=== PATIENT | male | born 1950 | race Caucasian/White ===

== ENCOUNTER 2020-07-07 06:58 | Outpatient (REF) | payer MEDICARE, SELFPAY ==
[2020-07-07 08:30] LABS: Estimated Average Glucose 137 mg/dL; Hemoglobin A1c % 6.4 %
[2020-07-07 08:50] LABS: Alanine Aminotransferase 28 U/L (0-40); Albumin Level 4.4 g/dL (3.5-5.0); Alkaline Phosphatase 82 U/L (39-117); Aspartate Amino Transferase 23 U/L (5-37); Bilirubin Direct 0.3 mg/dL (0.0-0.5); Bilirubin Total 0.6 mg/dL (0.0-1.0); Cholesterol 130 mg/dL; Glucose Fasting 114 mg/dL (60-99); HDL Cholesterol 62 mg/dL; LDL Cholesterol Calculated 55 mg/dl; Total Protein 6.7 g/dL (6.5-8.0); Triglycerides 69 mg/dL
[2020-07-07 10:57] LABS: Reflex LDLD? No
== END 2020-07-07 06:59 | disposition home or self-care (01) ==
LOC: HO.LAB 06:58
PROVIDERS: PCP Internal Medicine; Visit Provider Internal Medicine
DX: E11.9 Type 2 diabetes mellitus without complications (principal); E78.00 Pure hypercholesterolemia, unspecified
CPT/HCPCS: 36415; 80061; 80076; 82947; 83036

== ENCOUNTER 2020-12-30 10:27 | Outpatient (REF) | payer MEDICARE, SELFPAY ==
[2020-12-30 10:47] LABS: MANUAL DIFF FLAG NO
[2020-12-30 11:10] LABS: Basophils Absolute Auto 0.1 X10*3/uL (0.0-0.2); Basophils Percent Auto 0.9 % (0-2); Eosinophils Absolute Auto 0.2 X10*3/uL (0.0-0.4); Hematocrit 43.5 % (42-52); Hemoglobin 14.6 g/dl (14.0-18.0); Imm Gran Abs Auto 0.05 X10*3/uL (0.00-0.03); Imm Gran Pct Auto 0.9 % (0.0-0.4); Lymphocytes Percent Auto 35.1 % (20-40); Mean Corpuscular HGB Conc 33.6 g/dl (31.0-36.0); Mean Corpuscular Volume 92.4 fL (80-98); Mean Platelet Volume 9.7 fL (9.4-12.4); Monocytes Absolute Auto 0.5 X10*3/uL (0.1-1.2); Monocytes Percent Auto 8.7 % (2-11); Neutrophils Percent Auto 51.4 % (45-73); Platelet Count 189 X10*3/uL (160-400); Red Blood Count 4.71 X10*6/uL (4.60-5.80); Red Cell Distribution Width 14.6 % (11.0-16.0); White Blood Count 5.8 X10*3/uL (4.8-10.8)
[2020-12-30 11:35] LABS: Estimated Average Glucose 160 mg/dL; Hemoglobin A1c % 7.2 %
[2020-12-30 11:39] LABS: Glucose Urine UA NEG (NEG); Leukocyte Esterase Urine NEG (NEG); Nitrite Urine NEG (NEG); PH 5.5 (5.0-8.0); Specific Gravity - Urine >= 1.030 (1.005-1.025); Urine Blood NEG (NEG); Urine Ketones NEG (NEG); Urine Protein NEG (NEG-TRACE)
[2020-12-30 11:42] LABS: Appearance Urine CLEAR; Color Urine YELLOW
[2020-12-30 12:11] LABS: Microalbum/Creatinine Ratio Ur 3.6 ug/mg cr
[2020-12-30 12:18] LABS: PSA,Total (Free>4and<10) 0.12 ng/mL (0.00-4.00)
[2020-12-30 12:34] LABS: Alanine Aminotransferase 31 U/L (0-40); Albumin Level 4.3 g/dL (3.5-5.0); Alkaline Phosphatase 79 U/L (39-117); Anion Gap 14 (12-20); Aspartate Amino Transferase 22 U/L (5-37); Bilirubin Total 0.7 mg/dL (0.0-1.0); Blood Urea Nitrogen 24 mg/dL (9-16); Calcium 8.8 mg/dL (8.4-10.2); Carbon Dioxide 27 mmol/L (22-29); Chloride 105 mmol/L (96-108); Cholesterol 160 mg/dL; Estimated Glomerular Filt Rate > 60; Glucose Fasting 137 mg/dL (60-99); HDL Cholesterol 66 mg/dL; LDL Cholesterol Calculated 68 mg/dl; Potassium 3.8 mmol/L (3.3-5.1); Sodium 142 mmol/L (135-145); Total Protein 6.7 g/dL (6.5-8.0); Triglycerides 131 mg/dL
[2020-12-30 13:31] LABS: Reflex LDLD? No
== END 2020-12-30 10:28 | disposition home or self-care (01) ==
LOC: HO.LNP 10:27
PROVIDERS: Visit Provider Internal Medicine
DX: E11.9 Type 2 diabetes mellitus without complications (principal); E78.00 Pure hypercholesterolemia, unspecified; R31.9 Hematuria, unspecified; Z12.5 Encounter for screening for malignant neoplasm of prostate
CPT/HCPCS: 80053; 80061; 81003; 82043; 83036; 84153; 85025

== ENCOUNTER → 2021-07-06 09:18 | Outpatient (BNVA) | payer OTHER, SELFPAY | PROVIDERS: PCP Internal Medicine; Visit Provider Physician Assistant Medical | DX: S89.81XA Other specified injuries of right lower leg, initial encounter (principal); S59.801A Other specified injuries of right elbow, initial encounter; W18.30XA Fall on same level, unspecified, initial encounter | CPT/HCPCS: 73564; 99203 ==

== ENCOUNTER → 2021-07-08 13:45 | Outpatient (BNVA) | payer OTHER, SELFPAY | PROVIDERS: PCP Internal Medicine; Visit Provider Physician Assistant Medical | DX: S89.91XA Unspecified injury of right lower leg, initial encounter (principal); S59.901A Unspecified injury of right elbow, initial encounter; W18.39XA Other fall on same level, initial encounter | CPT/HCPCS: 99213 ==

== ENCOUNTER 2021-07-10 10:38 | Outpatient (REF) | payer MEDICARE, SELFPAY ==
[2021-07-10 11:03] LABS: Alanine Aminotransferase 27 U/L (0-40); Albumin Level 4.3 g/dL (3.5-5.0); Alkaline Phosphatase 91 U/L (39-117); Aspartate Amino Transferase 21 U/L (5-37); Bilirubin Direct 0.3 mg/dL (0.0-0.5); Bilirubin Total 0.7 mg/dL (0.0-1.0); Cholesterol 163 mg/dL; Glucose Fasting 147 mg/dL (60-99); HDL Cholesterol 58 mg/dL; LDL Cholesterol Calculated 77 mg/dl; Total Protein 6.9 g/dL (6.5-8.0); Triglycerides 143 mg/dL
[2021-07-10 11:04] LABS: Estimated Average Glucose 174 mg/dL; Hemoglobin A1c % 7.7 %
[2021-07-10 11:14] LABS: Reflex LDLD? No
== END 2021-07-10 10:39 | disposition home or self-care (01) ==
LOC: HO.LNP 10:38
PROVIDERS: Visit Provider Internal Medicine
DX: E11.9 Type 2 diabetes mellitus without complications (principal); E78.00 Pure hypercholesterolemia, unspecified
CPT/HCPCS: 80061; 80076; 82947; 83036

== ENCOUNTER 2021-07-31 12:04 | Outpatient (REF) | payer MEDICARE, SELFPAY ==
--- NOTE | ~2021-07-31 | US_ITS ---
EXAMINATION: US VENOUS ULTRASOUND WITH DOPPLER LOWER EXTREMITY, RIGHT CLINICAL INFORMATION: Right leg swelling COMPARISON: None TECHNIQUE: Ultrasound of the deep veins is performed from the hip to the calf with compression sonography and color and pulse Doppler assessment. Spectral analysis with color-flow imaging is performed. FINDINGS: There is normal venous compression and respiratory variation and augmented flow. The visualized common femoral vein, superficial femoral vein, profunda femoral vein, popliteal vein, and the trifurcation region shows no evidence of deep venous thrombosis. There is no significant popliteal fossa cyst. No popliteal artery aneurysm. US/US venous duplex LE RT IMPRESSION: No acute DVT demonstrated in the right lower extremity.
== END 2021-07-31 12:05 | disposition home or self-care (01) ==
LOC: HO.US 12:04
PROVIDERS: PCP Internal Medicine; Visit Provider Internal Medicine
DX: R60.0 Localized edema (principal)
CPT/HCPCS: 93971

== ENCOUNTER 2022-01-07 11:02 | Outpatient (REF) | payer MEDICARE, SELFPAY ==
[2022-01-07 11:06] LABS: MANUAL DIFF FLAG NO
[2022-01-07 12:03] LABS: Basophils Absolute Auto 0.1 X10*3/uL (0.0-0.2); Basophils Percent Auto 1.1 % (0-2); Eosinophils Absolute Auto 0.2 X10*3/uL (0.0-0.4); Eosinophils Percent Auto 4.2 % (0-4); Hemoglobin 14.8 g/dl (14.0-18.0); Imm Gran Abs Auto 0.04 X10*3/uL (0.00-0.03); Imm Gran Pct Auto 0.7 % (0.0-0.4); Lymphocytes Absolute Auto 2.2 X10*3/uL (1.2-4.9); Lymphocytes Percent Auto 38.7 % (20-40); Mean Corpuscular HGB Conc 32.9 g/dl (31.0-36.0); Mean Corpuscular Hemoglobin 30.7 pg (27.0-33.0); Mean Corpuscular Volume 93.4 fL (80.0-98.0); Mean Platelet Volume 9.4 fL (9.4-12.4); Monocytes Absolute Auto 0.5 X10*3/uL (0.1-1.2); Monocytes Percent Auto 9.2 % (2-11); Neutrophils Absolute Auto 2.6 x10*3/uL (2.0-8.3); Neutrophils Percent Auto 46.1 % (45-73); Platelet Count 247 X10*3/uL (160-400); Red Blood Count 4.82 X10*6/uL (4.60-5.80); Red Cell Distribution Width 14.7 % (11.0-16.0); White Blood Count 5.7 X10*3/uL (4.8-10.8)
[2022-01-07 12:05] LABS: Appearance Urine CLEAR; Color Urine YELLOW; Glucose Urine UA NEG (NEG); Leukocyte Esterase Urine NEG (NEG); Nitrite Urine NEG (NEG); PH 5.5 (5.0-8.0); Specific Gravity - Urine >= 1.030 (1.005-1.025); Urine Blood NEG (NEG); Urine Ketones NEG (NEG); Urine Protein NEG (NEG-TRACE)
[2022-01-07 12:12] LABS: Estimated Average Glucose 157 mg/dL; Hemoglobin A1c % 7.1 %
[2022-01-07 12:13] LABS: Alanine Aminotransferase 29 U/L (0-40); Albumin Level 4.5 g/dL (3.5-5.0); Alkaline Phosphatase 85 U/L (39-117); Anion Gap 10 (12-20); Aspartate Amino Transferase 22 U/L (5-37); Bilirubin Total 0.8 mg/dL (0.0-1.0); Blood Urea Nitrogen 23 mg/dL (9-16); Calcium 9.6 mg/dL (8.4-10.2); Carbon Dioxide 29 mmol/L (22-29); Chloride 106 mmol/L (96-108); Cholesterol 165 mg/dL; Estimated Glomerular Filt Rate > 60; Glucose Fasting 171 mg/dL (60-99); HDL Cholesterol 61 mg/dL; LDL Cholesterol Calculated 81 mg/dl; Potassium 4.1 mmol/L (3.3-5.1); Sodium 141 mmol/L (135-145); Total Protein 6.9 g/dL (6.5-8.0); Triglycerides 115 mg/dL
[2022-01-07 12:32] LABS: Creatinine Urine 208.87 mg/dL; Microalbum/Creatinine Ratio Ur 4.3 ug/mg cr
[2022-01-07 12:33] LABS: PSA,Total (Free>4and<10) 0.12 ng/mL (0.00-4.00)
== END 2022-01-07 11:03 | disposition home or self-care (01) ==
LOC: HO.LNP 11:02
PROVIDERS: Visit Provider Internal Medicine
DX: Z12.5 Encounter for screening for malignant neoplasm of prostate (principal); E11.9 Type 2 diabetes mellitus without complications; E78.00 Pure hypercholesterolemia, unspecified
CPT/HCPCS: 80053; 80061; 81003; 82043; 83036; 84153; 85025

== ENCOUNTER 2022-07-16 10:34 | Outpatient (REF) | payer MEDICARE, SELFPAY ==
[2022-07-16 11:23] LABS: Blood Urea Nitrogen 19 mg/dL (9-16); Estimated Glomerular Filt Rate > 60
== END 2022-07-16 10:35 | disposition home or self-care (01) ==
LOC: HO.LNP 10:34
PROVIDERS: Visit Provider Internal Medicine
DX: R79.9 Abnormal finding of blood chemistry, unspecified (principal)
CPT/HCPCS: 82565; 84520

== ENCOUNTER 2023-01-14 10:54 | Outpatient (REF) | payer MEDICARE, SELFPAY ==
[2023-01-14 10:58] LABS: MANUAL DIFF FLAG NO
[2023-01-14 11:56] LABS: Appearance Urine Clear; Color Urine Dark Yellow; Glucose Urine UA Negative (Negative); Leukocyte Esterase Urine Negative (Negative); Nitrite Urine Negative (Negative); PH 5.5 (5.0-9.0); Specific Gravity - Urine >= 1.030 (1.005-1.025); Urine Blood Negative (Negative); Urine Ketones Negative (Negative); Urine Protein Negative (Neg-Trace)
[2023-01-14 12:04] LABS: Basophils Absolute Auto 0.1 X10*3/uL (0.0-0.2); Eosinophils Absolute Auto 0.2 X10*3/uL (0.0-0.4); Eosinophils Percent Auto 3.6 % (0-4); Hematocrit 44.2 % (42.0-52.0); Hemoglobin 14.8 g/dl (14.0-18.0); Imm Gran Abs Auto 0.02 X10*3/uL (0.00-0.03); Imm Gran Pct Auto 0.3 % (0.0-0.4); Lymphocytes Absolute Auto 2.3 X10*3/uL (1.2-4.9); Lymphocytes Percent Auto 33.7 % (20-40); Mean Corpuscular HGB Conc 33.5 g/dl (31.0-36.0); Mean Corpuscular Hemoglobin 30.8 pg (27.0-33.0); Mean Corpuscular Volume 91.9 fL (80.0-98.0); Mean Platelet Volume 9.9 fL (9.4-12.4); Monocytes Absolute Auto 0.6 X10*3/uL (0.1-1.2); Monocytes Percent Auto 8.6 % (2-11); Neutrophils Absolute Auto 3.5 x10*3/uL (2.0-8.3); Neutrophils Percent Auto 52.8 % (45-73); Platelet Count 221 X10*3/uL (160-400); Red Blood Count 4.81 X10*6/uL (4.60-5.80); Red Cell Distribution Width 14.6 % (11.0-16.0); White Blood Count 6.7 X10*3/uL (4.8-10.8)
[2023-01-14 12:31] LABS: Estimated Average Glucose 166 mg/dL; Hemoglobin A1c % 7.4 %
[2023-01-14 12:38] LABS: Alanine Aminotransferase 26 U/L (0-40); Albumin Level 4.7 g/dL (3.5-5.0); Alkaline Phosphatase 78 U/L (39-117); Anion Gap 14 (12-20); Aspartate Amino Transferase 22 U/L (5-37); Bilirubin Total 0.8 mg/dL (0.0-1.0); Blood Urea Nitrogen 21 mg/dL (9-16); Calcium 9.9 mg/dL (8.4-10.2); Carbon Dioxide 29 mmol/L (22-29); Chloride 107 mmol/L (96-108); Cholesterol 150 mg/dL; Estimated Glomerular Filt Rate > 60; Glucose Fasting 138 mg/dL (60-99); HDL Cholesterol 66 mg/dL; LDL Cholesterol Calculated 65 mg/dl; Potassium 4.4 mmol/L (3.3-5.1); Sodium 146 mmol/L (135-145); Total Protein 6.9 g/dL (6.5-8.0); Triglycerides 99 mg/dL
[2023-01-14 12:39] LABS: Creatinine Urine 275.18 mg/dL; Microalbum/Creatinine Ratio Ur 4.7 ug/mg cr
[2023-01-14 12:42] LABS: PSA,Total (Free>4and<10) 0.14 ng/mL (0.00-4.00)
== END 2023-01-14 10:55 | disposition home or self-care (01) ==
LOC: HO.LNP 10:54
PROVIDERS: Visit Provider Internal Medicine
DX: Z12.5 Encounter for screening for malignant neoplasm of prostate (principal); E11.9 Type 2 diabetes mellitus without complications; E78.00 Pure hypercholesterolemia, unspecified
CPT/HCPCS: 80053; 80061; 81003; 82043; 83036; 84153; 85025

== ENCOUNTER 2023-01-21 12:03 | Outpatient (REF) | payer MEDICARE, SELFPAY ==
[2023-01-21 12:25] LABS: Appearance Urine Clear; Color Urine Yellow; Glucose Urine UA Negative (Negative); Leukocyte Esterase Urine Negative (Negative); Nitrite Urine Negative (Negative); PH 6.5 (5.0-9.0); Specific Gravity - Urine <= 1.005 (1.005-1.025); UMIC TRIGGER UA YES; Urine Blood Moderate (2+) (Negative); Urine Ketones Negative (Negative); Urine Protein Negative (Neg-Trace)
[2023-01-21 12:36] LABS: Bacteria Urine None Seen (None Seen); Hyaline Casts Urine 0-2 /LPF (0-2); Squamous Epithelial Cell Urine 0-2 /HPF (0-2); WBC Urine 0-5 /HPF (0-5)
== END 2023-01-21 12:04 | disposition home or self-care (01) ==
LOC: HO.LNP 12:03
PROVIDERS: Visit Provider Internal Medicine
DX: N30.00 Acute cystitis without hematuria (principal)
CPT/HCPCS: 81001; 87086

== ENCOUNTER 2023-02-04 10:57 | Outpatient (REF) | payer MEDICARE, SELFPAY ==
[2023-02-04 11:36] LABS: Appearance Urine Clear; Color Urine Yellow; Glucose Urine UA Negative (Negative); Leukocyte Esterase Urine Negative (Negative); Nitrite Urine Negative (Negative); PH 5.5 (5.0-9.0); Specific Gravity - Urine <= 1.005 (1.005-1.025); Urine Blood Negative (Negative); Urine Ketones Negative (Negative); Urine Protein Negative (Neg-Trace)
[2023-02-04 11:42] LABS: Bacteria Urine None Seen (None Seen); Hyaline Casts Urine 0-2 /LPF (0-2); RBC Urine 0-2 /HPF (0-2); Squamous Epithelial Cell Urine 0-2 /HPF (0-2); WBC Urine 0-5 /HPF (0-5)
== END 2023-02-04 10:58 | disposition home or self-care (01) ==
LOC: HO.LNP 10:57
PROVIDERS: PCP Internal Medicine; Visit Provider Internal Medicine
DX: N39.0 Urinary tract infection, site not specified (principal)
CPT/HCPCS: 81001; 87086

== ENCOUNTER 2023-08-01 11:00 | Outpatient (REF) | payer MEDICARE, SELFPAY ==
[2023-08-01 11:44] LABS: Estimated Average Glucose 137 mg/dL; Hemoglobin A1c % 6.4 % (<6.0)
[2023-08-01 11:58] LABS: Alanine Aminotransferase 21 U/L (0-40); Albumin Level 4.6 g/dL (3.5-5.0); Alkaline Phosphatase 70 U/L (39-117); Aspartate Amino Transferase 20 U/L (5-37); Bilirubin Direct 0.2 mg/dL (0.0-0.5); Bilirubin Total 0.7 mg/dL (0.0-1.0); Glucose Fasting 139 mg/dL (60-99); Total Protein 7.2 g/dL (6.5-8.0)
[2023-08-01 12:03] LABS: Cholesterol 160 mg/dL (<200); HDL Cholesterol 64 mg/dL (>40); LDL Cholesterol Calculated 72 mg/dL (<100); Triglycerides 121 mg/dL (<150)
[2023-08-01 14:56] LABS: Reflex LDLD? No
== END 2023-08-01 11:01 | disposition home or self-care (01) ==
LOC: HO.LNP 11:00
PROVIDERS: Visit Provider Internal Medicine
DX: E11.9 Type 2 diabetes mellitus without complications (principal); E78.00 Pure hypercholesterolemia, unspecified
CPT/HCPCS: 80061; 80076; 82947; 83036

== ENCOUNTER 2023-08-11 10:51 | Outpatient (REF) | payer MEDICARE, SELFPAY ==
--- NOTE | ~2023-08-11 | XR_ITS ---
EXAMINATION: XR HAND, LEFT CLINICAL INFORMATION: History hurt finger COMPARISON: None available. TECHNIQUE: PA, lateral, and oblique views of the left hand. FINDINGS: The bones are diffusely demineralized. Advanced degenerative changes in the first carpometacarpal joint with joint space narrowing and hypertrophic change. Cystic lucency at the base of the second metacarpal. Mild degenerative changes in scattered interphalangeal joints and the first metacarpophalangeal joint. Irregular bony spurring along the dorsal base of the distal tuft of the fifth digit. XR/XR hand LT min 3V IMPRESSION: 1. Advanced degenerative changes first carpometacarpal joint. 2. Irregular bony spurring along the dorsal aspect of the fifth DIP joint. Correlation with clinical exam recommended to evaluate for possible associated fracture. Recommend follow-up imaging in 10-14 days if fracture is suspected. This study was presented today August 16, 2023 at 11:35 AM for interpretation. PSA staff will provide results to referring provider at this time.
== END 2023-08-11 10:52 | disposition home or self-care (01) ==
LOC: HO.HOSX 10:51
PROVIDERS: PCP Internal Medicine; Visit Provider Physical Medicine & Rehabilitation
DX: M65.332 Trigger finger, left middle finger (principal); M79.642 Pain in left hand
CPT/HCPCS: 20550; 73130; 99202; J3301

== ENCOUNTER 2023-08-11 10:51 | Outpatient (AMB) | payer MEDICARE, SELFPAY ==
--- NOTE | 2023-08-11 10:57 | A.OFFVIS_ITS ---
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 States locking started about 3 months ago and is locking more frequent. States he is not able to make a full close fist due to locking and increase pain. Also has weakness and stiffness in his right hand when gripping and lifting. Patient has hx of cortisone in right thumb due to locking. Allergies cimetidine [From Tagamet] Allergy (Intermediate, Verified 08/11/23 11:10) severe rash ibuprofen Allergy (Intermediate, Verified 08/11/23 11:10) blisters Penicillins Allergy (Intermediate, Verified 08/11/23 11:10) rash sulfa drugs Allergy (Intermediate, Uncoded 08/11/23 11:10) difficulty breathing HPI HPI Comments History of Present Illness Details Left middle finger locking, 4 months. No falls or injuries. No nodule palpable. Had trigger thumb 2 years, had injection and splint. Been fine since. Sore on joint attributed to arthritis. No numbness. No weakness. Diabetic. History of bilateral TKR. 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 MSK: Inspection reveals appropriate head and neck positioning. Cervical ROM was full. Spurling's sign negative. Bilateral shoulder ROM WNL. No ligamentous laxity or crepitance. No increased effusion. No intrinsic hand weakness noted. No atrophy noted. Kalpana test negative. Carpal compression test negative. Tinel sign negative. Triggering left 3rd digit. Palpable nodule. Strength is 5/5 in all muscle groups tested. No increased tone noted. Neurological: Neurologic examination of the upper and lower extremities was nonfocal with intact sensation, muscle stretch reflexes and without focal motor deficits . Mckenzie?s negative bilaterally. Gait is non-antalgic without loss of balance. Office Procedures Tendon Injection Tendon Injection Details: Risks and benefits discussed. Consent obtained. Patient places left hand palm up on table. Identified and marked nodule. Area prepped in sterile manner. Inserted 27 gauge 0.5 inch needle perpendicular into nodule, injecting 10mg Kenalog with 0.75mg 2% Lidocaine. Patient tolerated procedure well. Post injection instructions given. 24041-[id number] Tendon Sheath Injection All charges added?: Procedure code (CPT) selection complete Results Reviewed Results Reviewed: I independently reviewed the results of the following: hand xray - left 1st MCP and IP joints I reviewed records from the following: Ortho notes Dr. Mcmullen 2020 Assessment & Plan Assessment & Plan (1) Hand pain, left: Code(s): M79.642 - Pain in left hand (2) Trigger finger, left: Code(s): M65.30 - Trigger finger, unspecified finger Qualifiers: Trigger finger location: middle finger Qualified Code(s): M65.332 - Trigger finger, left middle finger Plan Triggering on left middle finger. Sent patient for x-ray to rule out bony abnormality- left 1st MCP and IP joints. Await final read. Steroid injection done per patient's request. We will put him finger splint. Re-evaluate in 3 months. If not better, consider surgical intervention. Assessment and plan discussed with patient, and patient was agreeable. All questions were answered thoroughly. Alice Mcgraw MD, JOSEPH Board Certified, [place] Board of Physical Medicine and Rehabilitation (ABPMR) Board Certified, [place] Board of Electrodiagnostic Medicine (ABEM) Orders: Orders XR hand LT min 3V Today M65.30 - Trigger finger, unspecified finger, M79.642 - Pain in left hand AMB Injection-Tendon Today M65.30 - Trigger finger, unspecified finger Coding Level of Care Code New Pt Level 4 (86264) Diagnoses Hand pain, left M79.642 Trigger middle finger of left hand M65.332 Trigger finger location: middle finger CPT Codes Tendon Injection - Tendon Injection 1: [id number]-[id number] Tendon Sheath Injection ([id number])
[2023-08-11 11:00] VITALS: BMI 33.6
== END 2023-08-11 11:39 | disposition home or self-care (01) ==
PROVIDERS: PCP Internal Medicine; Visit Provider Physical Medicine & Rehabilitation
DX: M79.642 Pain in left hand (principal); M65.332 Trigger finger, left middle finger
CPT/HCPCS: 20550; 99204

== ENCOUNTER 2023-09-01 12:11 | Outpatient (REF) | payer MEDICARE, SELFPAY ==
--- NOTE | ~2023-09-01 | XR_ITS ---
STUDY: Bilateral knees INDICATION: Bilateral knee pain COMPARISON: 07/06/2021 right knee TECHNIQUE: 3 views each knee. FINDINGS: Right: Right total knee replacement prosthetic components are stable in position without evidence of loosening. Alignment is satisfactory. No fracture or dislocation. No joint effusion. Couple suprapatellar calcifications again seen. Mild lateral proximal/mid fibular periosteal thickening. Left: Left total knee replacement prosthetic components is satisfactory in position without evidence of loosening or failure. No fracture, dislocation or joint effusion. XR/XR knee LT 3V IMPRESSION: Bilateral total knee replacements. No acute bony pathology bilateral knees.
--- NOTE | ~2023-09-01 | XR_ITS ---
STUDY: Bilateral knees INDICATION: Bilateral knee pain COMPARISON: 07/06/2021 right knee TECHNIQUE: 3 views each knee. FINDINGS: Right: Right total knee replacement prosthetic components are stable in position without evidence of loosening. Alignment is satisfactory. No fracture or dislocation. No joint effusion. Couple suprapatellar calcifications again seen. Mild lateral proximal/mid fibular periosteal thickening. Left: Left total knee replacement prosthetic components is satisfactory in position without evidence of loosening or failure. No fracture, dislocation or joint effusion. XR/XR knee RT 3V IMPRESSION: Bilateral total knee replacements. No acute bony pathology bilateral knees.
== END 2023-09-01 12:12 | disposition home or self-care (01) ==
LOC: HO.HOSX 12:11
PROVIDERS: Visit Provider Orthopaedic Surgery
DX: M25.561 Pain in right knee (principal); M25.562 Pain in left knee
CPT/HCPCS: 73562; 99212

== ENCOUNTER 2023-09-01 12:15 | Outpatient (AMB) | payer MEDICARE, SELFPAY ==
--- NOTE | 2023-09-01 12:32 | MHC.OFFVIS ---
Intake Vital Signs 09/01/23 12:37 Height 6 ft 2 in Weight 262 lb BMI 33.6 Intake Visit Reasons: NProblem-B/L knee follow up Intake Note: Russell is a 73 year old male who presents today as a previous patient of for a follow up on his B/L TKA. He reports mild intermittent discomfort in both of his knees. He denies any fevers or chills. He continues with his home exercise program. 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 Physical Exam Vital Signs: BMI result Body Mass Index 33.6 Const Other: Well-nourished well-developed very friendly male awake alert and oriented x3 in no acute distress Extrem Other: Bilateral lower extremity examination shows good capillary refill, no skin lesions noted, normal sensation light touch Bilateral knee examination shows that the surgical incisions are well healed, no erythema, full active extension and flexion to 120 degrees, his patellae track well Results Reviewed Results Reviewed: X-rays of the patient's bilateral knees taken today show total knee arthroplasties in good position with no signs of loosening, no acute bony abnormalities Assessment & Plan Assessment & Plan (1) Right knee pain: Code(s): M25.561 - Pain in right knee (2) Left knee pain: Code(s): M25.562 - Pain in left knee Plan Mr. Leger continues to do well after undergoing bilateral total knee replacement surgeries. He will continue with his home exercise program. He does know to take antibiotics before any dental work. He will contact me prior to his annual follow-up appointment should any questions or concerns arise. Feel free to call me at any time should questions regarding his orthopedic management arise. I spent 22 minutes in reviewing the patient's records and imaging studies, seeing the patient and documenting in the medical record. Orders: Orders XR knee RT 3V Today M25.561 - Pain in right knee XR knee LT 3V Today M25.562 - Pain in left knee Coding Level of Care Code Est Pt Level 2 (39545) Diagnoses Right knee pain M25.561 Left knee pain M25.562
[2023-09-01 12:37] VITALS: BMI 33.6
== END 2023-09-01 12:49 | disposition home or self-care (01) ==
PROVIDERS: PCP Internal Medicine; Visit Provider Orthopaedic Surgery
DX: M25.561 Pain in right knee (principal); M25.562 Pain in left knee
CPT/HCPCS: 99212

== ENCOUNTER 2023-11-16 11:08 | Outpatient (AMB) | payer MEDICARE, SELFPAY ==
--- NOTE | 2023-11-16 11:28 | A.OFFVIS_ITS ---
Intake Intake Visit Reasons: OV-b/l trigger MF-follow up/ Confirmed Intake Note: Russell 73 yr old right hand dominant male presents today for a follow up of his left middle finger trigger injection done on 08/11/2023. Patient reports that this injection was and continues to remain helpful. He does not have any pain locking or catching Allergies cimetidine [From Tagamet] Allergy (Intermediate, Verified 09/01/23 12:36) severe rash ibuprofen Allergy (Intermediate, Verified 09/01/23 12:36) blisters Penicillins Allergy (Intermediate, Verified 09/01/23 12:36) rash sulfa drugs Allergy (Intermediate, Uncoded 08/11/23 11:10) difficulty breathing HPI HPI Comments History of Present Illness Details Seen last visit 08/11/23 for left middle trigger finger and hand pain. Injection to trigger finger done, without complications. Symptoms resolved. No more locking. Denies pain even on thumb. Able to flex, no weakness or tightness. No numbness. Xray showed incidental finding on 5th digit but patient did not have any fall or injury, denies symptoms on left 5th digit. 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 MSK: No joint effusion noted. No deformity noted. No intrinsic hand weakness noted. No atrophy noted. Kalpana test negative. Carpal compression test negative. Tinel sign negative. No triggering. Strength is 5/5 in all muscle groups tested. No increased tone noted. Results Reviewed Results Reviewed: EXAMINATION: XR HAND, LEFT CLINICAL INFORMATION: History hurt finger COMPARISON: None available. TECHNIQUE: PA, lateral, and oblique views of the left hand. FINDINGS: The bones are diffusely demineralized. Advanced degenerative changes in the first carpometacarpal joint with joint space narrowing and hypertrophic change. Cystic lucency at the base of the second metacarpal. Mild degenerative changes in scattered interphalangeal joints and the first metacarpophalangeal joint. Irregular bony spurring along the dorsal base of the distal tuft of the fifth digit. XR/XR hand LT min 3V IMPRESSION: 1. Advanced degenerative changes first carpometacarpal joint. 2. Irregular bony spurring along the dorsal aspect of the fifth DIP joint. Correlation with clinical exam recommended to evaluate for possible associated fracture. Recommend follow-up imaging in 10-14 days if fracture is suspected. This study was presented today August 16, 2023 at 11:35 AM for interpretation. PSA staff will provide results to referring provider at this time. Assessment & Plan Assessment & Plan (1) Trigger finger, left: Code(s): M65.30 - Trigger finger, unspecified finger Qualifiers: Trigger finger location: middle finger Qualified Code(s): M65.332 - Trigger finger, left middle finger (2) Arthritis of carpometacarpal (CMC) joint of left thumb: Code(s): M18.12 - Unilateral primary osteoarthritis of first carpometacarpal joint, left hand Plan Symptoms resolved. Patient happy with improvement. No further intervention needed. Assessment and plan discussed with patient, and patient was agreeable. All questions were answered thoroughly. Follow up as needed. Alice Mcgraw MD, JOSEPH Board Certified, [place] Board of Physical Medicine and Rehabilitation (ABPMR) Board Certified, [place] Board of Electrodiagnostic Medicine (ABEM) Coding Level of Care Code Est Pt Level 3 (21166) Diagnoses Trigger middle finger of left hand M65.332 Trigger finger location: middle finger Arthritis of carpometacarpal (CMC) joint of left thumb M18.12
== END 2023-11-16 11:48 | disposition home or self-care (01) ==
PROVIDERS: PCP Internal Medicine; Visit Provider Physical Medicine & Rehabilitation
DX: M65.332 Trigger finger, left middle finger (principal); M18.12 Unilateral primary osteoarthritis of first carpometacarpal joint, left hand
CPT/HCPCS: 99213

== ENCOUNTER → 2023-11-16 11:08 | Outpatient (BNVA) | payer MEDICARE, SELFPAY | PROVIDERS: PCP Internal Medicine; Visit Provider Physical Medicine & Rehabilitation | DX: M65.332 Trigger finger, left middle finger (principal); M18.12 Unilateral primary osteoarthritis of first carpometacarpal joint, left hand | CPT/HCPCS: 99212 ==

== ENCOUNTER 2024-01-17 11:44 | Outpatient (REF) | payer MEDICARE, SELFPAY ==
[2024-01-17 11:47] LABS: MANUAL DIFF FLAG NO
[2024-01-17 11:57] LABS: Appearance Urine Clear; Color Urine Dark Yellow; Glucose Urine UA Negative (Negative); Leukocyte Esterase Urine Negative (Negative); Nitrite Urine Negative (Negative); PH 5.5 (5.0-9.0); Specific Gravity - Urine 1.025 (1.005-1.025); Urine Blood Negative (Negative); Urine Ketones Negative (Negative); Urine Protein Negative (Neg-Trace)
[2024-01-17 12:04] LABS: Bacteria Urine None Seen (None Seen); Hyaline Casts Urine 0-2 /LPF (0-2); RBC Urine 0-2 /HPF (0-2); Squamous Epithelial Cell Urine 0-2 /HPF (0-2); WBC Urine 0-5 /HPF (0-5)
[2024-01-17 12:12] LABS: Basophils Absolute Auto 0.1 X10*3/uL (0.0-0.2); Basophils Percent Auto 1.2 % (0-2); Eosinophils Absolute Auto 0.2 X10*3/uL (0.0-0.4); Eosinophils Percent Auto 3.7 % (0-4); Hematocrit 42.5 % (42.0-52.0); Imm Gran Abs Auto 0.02 X10*3/uL (0.00-0.03); Imm Gran Pct Auto 0.4 % (0.0-0.4); Lymphocytes Absolute Auto 2.2 X10*3/uL (1.2-4.9); Lymphocytes Percent Auto 38.4 % (20-40); Mean Corpuscular HGB Conc 32.9 g/dl (31.0-36.0); Mean Corpuscular Hemoglobin 30.6 pg (27.0-33.0); Mean Corpuscular Volume 92.8 fL (80.0-98.0); Mean Platelet Volume 9.6 fL (9.4-12.4); Monocytes Absolute Auto 0.5 X10*3/uL (0.1-1.2); Monocytes Percent Auto 8.4 % (2-11); Neutrophils Absolute Auto 2.7 x10*3/uL (2.0-8.3); Neutrophils Percent Auto 47.9 % (45-73); Platelet Count 223 X10*3/uL (160-400); Red Blood Count 4.58 X10*6/uL (4.60-5.80); Red Cell Distribution Width 14.3 % (11.0-16.0); White Blood Count 5.7 X10*3/uL (4.8-10.8)
[2024-01-17 13:06] LABS: PSA,Total (Free>4and<10) 0.14 ng/mL (0.00-4.00)
[2024-01-17 13:25] LABS: Estimated Average Glucose 157 mg/dL; Hemoglobin A1c % 7.1 % (<6.0)
[2024-01-17 13:44] LABS: Alanine Aminotransferase 18 U/L (0-40); Albumin Level 4.3 g/dL (3.5-5.0); Alkaline Phosphatase 75 U/L (39-117); Anion Gap 13 (12-20); Aspartate Amino Transferase 19 U/L (5-37); Bilirubin Total 0.6 mg/dL (0.0-1.0); Blood Urea Nitrogen 23 mg/dL (9-16); Calcium 9.4 mg/dL (8.4-10.2); Carbon Dioxide 28 mmol/L (22-29); Chloride 107 mmol/L (96-108); Cholesterol 155 mg/dL (<200); Estimated Glomerular Filt Rate > 60; Glucose Fasting 133 mg/dL (60-99); HDL Cholesterol 65 mg/dL (>40); LDL Cholesterol Calculated 72 mg/dL (<100); Sodium 144 mmol/L (135-145); Triglycerides 90 mg/dL (<150)
[2024-01-17 14:11] LABS: Creatinine Urine 159.59 mg/dL; Microalbum/Creatinine Ratio Ur 3.1 ug/mg cr (<30)
== END 2024-01-17 11:45 | disposition home or self-care (01) ==
LOC: HO.LNP 11:44
PROVIDERS: Visit Provider Internal Medicine
DX: Z12.5 Encounter for screening for malignant neoplasm of prostate (principal); E11.9 Type 2 diabetes mellitus without complications; E78.00 Pure hypercholesterolemia, unspecified
CPT/HCPCS: 80053; 80061; 81001; 82043; 82570; 83036; 84153; 85025

== ENCOUNTER 2024-03-08 13:05 | Outpatient (AMB) | payer MEDICARE, SELFPAY ==
--- NOTE | 2024-03-08 13:06 | A.OFFVIS_ITS ---
Intake Visit Reasons: OV-B/L knee follow up Intake Note: Russell is a 73 year old male who presents today for a follow up visit for bilateral TKA done with Dr. Mcmullen. Pt reports mild intermittent discomfort in both of his knees. He does not take any medicines for his discomfort. He denies any fevers or chills. He continues with his home exercise program. Allergies cimetidine [From Tagamet] Allergy (Intermediate, Verified 03/08/24 13:06) severe rash ibuprofen Allergy (Intermediate, Verified 03/08/24 13:06) blisters Penicillins Allergy (Intermediate, Verified 03/08/24 13:06) rash sulfa drugs Allergy (Intermediate, Uncoded 03/08/24 13:06) difficulty breathing Medication List - Last Reconciled 03/08/24 by Kimo Mcmullen MD atorvastatin 20 mg PO DAILY metformin 1,000 mg PO BID [facility] Medical History (Updated 11/16/23 @ 11:51 by Alice Mcgraw MD) Arthritis of carpometacarpal (CMC) joint of left thumb Social History (Updated 08/11/23 @ 11:04 by Arianne Vidales [facility]) Current occupational status: employed and retired 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 Physical Exam Const Other: Well-nourished well-developed very friendly male awake alert and oriented x3 in no acute distress Extrem Other: Bilateral lower extremity examination shows good capillary refill, no skin lesions noted, normal sensation light touch Bilateral knee examination shows that the surgical incisions are well healed, no erythema, full active extension and flexion to 120 degrees, his patellae track well Assessment & Plan Assessment & Plan (1) Right knee pain: Code(s): M25.561 - Pain in right knee Category: Medical (2) Left knee pain: Code(s): M25.562 - Pain in left knee Category: Medical Plan Mr. Leger continues to do well after undergoing bilateral total knee replacement surgeries. He will continue with his home exercise program. He does know to take antibiotics before any dental work. He will contact me prior to his annual follow-up appointment should any questions or concerns arise. Feel free to call me at any time should questions regarding his orthopedic management arise. I spent 21 minutes in reviewing the patient's records and imaging studies, seeing the patient and documenting in the medical record. Coding Level of Care Code Est Pt Level 2 (35744) Diagnoses Right knee pain M25.561 Left knee pain M25.562
== END 2024-03-08 13:25 | disposition home or self-care (01) ==
PROVIDERS: PCP Internal Medicine; Visit Provider Orthopaedic Surgery
DX: M25.561 Pain in right knee (principal); M25.562 Pain in left knee
CPT/HCPCS: 99213

== ENCOUNTER → 2024-03-08 13:05 | Outpatient (BNVA) | payer MEDICARE, SELFPAY | PROVIDERS: PCP Internal Medicine; Visit Provider Orthopaedic Surgery | DX: M25.561 Pain in right knee (principal); M25.562 Pain in left knee | CPT/HCPCS: 99212 ==

== ENCOUNTER 2024-07-11 13:13 | Outpatient (AMB) | payer MEDICARE, SELFPAY ==
--- NOTE | 2024-07-11 13:16 | MHC.OFFVIS ---
Intake Visit Reasons: OV-B/L knee follow up Intake Note: Russell is a 73 year old male that presents today with a follow up for B/L knee TKA DR. Rankin states he is overall feeling and states he does have some soreness in his left knee occasionally. He takes Aleve or Tylenol as needed for his discomfort. He continues with his home exercise program. He denies any fevers or chills. Allergies cimetidine [From Tagamet] Allergy (Intermediate, Verified 07/11/24 13:17) severe rash ibuprofen Allergy (Intermediate, Verified 07/11/24 13:17) blisters Penicillins Allergy (Intermediate, Verified 07/11/24 13:17) rash sulfa drugs Allergy (Intermediate, Uncoded 07/11/24 13:17) difficulty breathing Medication List - Last Reconciled 07/11/24 by Kimo Mcmullen MD atorvastatin 20 mg PO DAILY clindamycin HCl 600 mg (2 x 300 mg) PO ONCE metformin 1,000 mg PO BID [facility] Medical History (Updated 11/16/23 @ 11:51 by Alice Mcgraw MD) Arthritis of carpometacarpal (CMC) joint of left thumb Social History (Updated 08/11/23 @ 11:04 by Arianne Vidales [facility]) Current occupational status: employed and retired 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 Physical Exam Const Other: Well-nourished well-developed very friendly male awake alert and oriented x3 in no acute distress Extrem Other: Bilateral lower extremity examination shows good capillary refill, no skin lesions noted, normal sensation light touch Bilateral knee examination shows that the surgical incisions are well healed, no erythema, full active extension and flexion to 115 degrees, his patellae track well Assessment & Plan Assessment & Plan (1) Right knee pain: Code(s): M25.561 - Pain in right knee Category: Medical (2) Left knee pain: Code(s): M25.562 - Pain in left knee Category: Medical Plan Mr. Leger continues to do very well after undergoing bilateral total knee replacement surgeries. He will continue with his home exercise program. He does know to take antibiotics before any dental work. Will contact me prior to his annual follow-up appointment should any questions or concerns arise. Feel free to call me at any time should questions regarding his orthopedic management arise. I spent 21 minutes in reviewing the patient's records and imaging studies, seeing the patient and documenting in the medical record. Coding Level of Care Code Est Pt Level 3 (91550) Complex EM visit Add On G2211 Diagnoses Right knee pain M25.561 Left knee pain M25.562
== END 2024-07-11 13:32 | disposition home or self-care (01) ==
PROVIDERS: PCP Internal Medicine; Visit Provider Orthopaedic Surgery
DX: M25.561 Pain in right knee (principal); M25.562 Pain in left knee; Z96.653 Presence of artificial knee joint, bilateral
CPT/HCPCS: 99212; G2211

== ENCOUNTER → 2024-07-11 13:13 | Outpatient (BNVA) | payer MEDICARE, SELFPAY | PROVIDERS: PCP Internal Medicine; Visit Provider Orthopaedic Surgery | DX: M25.562 Pain in left knee (principal); M25.561 Pain in right knee; Z96.653 Presence of artificial knee joint, bilateral | CPT/HCPCS: 99212 ==

== ENCOUNTER 2024-07-20 10:42 | Outpatient (REF) | payer MEDICARE, SELFPAY ==
[2024-07-20 11:57] LABS: Alanine Aminotransferase 21 U/L (0-40); Albumin Level 4.5 g/dL (3.5-5.0); Alkaline Phosphatase 71 U/L (39-117); Aspartate Amino Transferase 21 U/L (5-37); Bilirubin Direct 0.3 mg/dL (0.0-0.5); Bilirubin Total 0.6 mg/dL (0.0-1.0); Cholesterol 141 mg/dL (<200); Glucose Fasting 112 mg/dL (60-99); HDL Cholesterol 69 mg/dL (>40); LDL Cholesterol Calculated 51 mg/dL (<100); Total Protein 7.1 g/dL (6.5-8.0); Triglycerides 105 mg/dL (<150)
[2024-07-20 12:32] LABS: Estimated Average Glucose 148 mg/dL; Hemoglobin A1C 202.6663 umol/L; Hemoglobin A1c % 6.8 % (<6.0); Total Hemoglobin (HGBA1C) 3968.9018 umol/L
[2024-07-20 14:23] LABS: Reflex LDLD? No
== END 2024-07-20 10:43 | disposition home or self-care (01) ==
LOC: HO.LNP 10:42
PROVIDERS: Visit Provider Internal Medicine
DX: E11.9 Type 2 diabetes mellitus without complications (principal); E78.00 Pure hypercholesterolemia, unspecified
CPT/HCPCS: 80061; 80076; 82947; 83036

== ENCOUNTER 2024-08-09 10:15 | Outpatient (REF) | payer MEDICARE, SELFPAY ==
--- NOTE | ~2024-08-09 | US_ITS ---
EXAMINATION: US ABDOMEN COMPLETE CLINICAL INFORMATION: Flank pain. COMPARISON: None available. TECHNIQUE: Real-time imaging of the abdominal viscera. Technically difficult study secondary to bowel gas and body habitus. FINDINGS: PANCREAS: Mostly obscured by bowel gas. Not well visualized ABDOMINAL AORTA: Visualized portion is normal, partly obscured by gas. INFERIOR VENA CAVA: Visualized portions are normal. LIVER: Enlarged measuring 17.1 cm The liver contour is normal. Increased echogenicity of the liver parenchyma, this can be seen in the setting of hepatic steatosis or liver parenchymal disease. No focal hepatic lesion. There is no intrahepatic biliary duct dilatation seen. GALLBLADDER: The gallbladder is physiologically distended. Multiple mobile gallstones are present. No evidence of gallbladder wall thickening or pericholecystic fluid. COMMON BILE DUCT: Normal in caliber measuring 0.7 cm in diameter. RIGHT KIDNEY: Normal. No hydronephrosis. No renal calculi or focal parenchymal lesions. The kidney measures 11.8 cm in maximum dimension. LEFT KIDNEY: Normal. No hydronephrosis. No renal calculi or focal parenchymal lesions. The kidney measures 12.0 cm in maximum dimension. SPLEEN: Normal. The spleen measures 11.6 cm in maximum dimension. FREE FLUID: None. US/US abdomen complete IMPRESSION: 1. Cholelithiasis without ultrasound evidence of acute cholecystitis. 2. Hepatomegaly, increased echogenicity of the liver parenchyma, this can be seen in the setting of hepatic steatosis or liver parenchymal disease. 3. Pancreas not well visualized obscured by bowel gas. Electronically signed by: Charity Vigil MD 08/19/2024 07:02 PM [facility]
== END 2024-08-09 10:16 | disposition home or self-care (01) ==
LOC: HO.US 10:15
PROVIDERS: PCP Internal Medicine; Visit Provider Internal Medicine
DX: R10.9 Unspecified abdominal pain (principal)
CPT/HCPCS: 76700

== ENCOUNTER 2025-01-03 08:23 | Outpatient (REF) | payer MEDICARE, SELFPAY ==
--- NOTE | ~2025-01-03 | XR_ITS ---
CLINICAL HISTORY: M25.562 - Pain in left knee 3 view left knee Comparison: 11/01/2022 12:20 PM EST: DX Findings: Bones intact. No dislocations. Components of the knee prosthesis are intact and normally aligned. No significant arthritic change or erosions. No joint effusion. No other radiopaque foreign body. IMPRESSION: 1. No acute findings. This document has been electronically signed by: Juan Miguel Medrano MD on 01/04/2025 09:12:48
--- NOTE | ~2025-01-03 | XR_ITS ---
CLINICAL HISTORY: M25.561 - Pain in right knee 3 view right knee Comparison: 09/01/2023 12:20 PM EST: DX Findings: No fractures or dislocations. Components of the prosthesis are intact and normally aligned. No significant loss of joint space, osteophytes, or erosions. No joint effusion. No other radiopaque foreign body. IMPRESSION: 1. No acute findings. This document has been electronically signed by: Juan Miguel Medrano MD on 01/04/2025 09:12:54
--- OUTSIDE RECORDS SUMMARY | 2025-01-04 08:41 | XMS_ITS ---
Author Organization Yadiel Bustillos MD Address [address] [place], [place] [phone] Care Team Providers Care Auto Body Estimator Name Role Phone Yadiel Bustillos Primary Care Provider Results Component Value Reference Range Notes Liver Panel Reviewed date:07/22/2024 05:03:18 PM Interpretation: Performing Lab:[facility], [address] [place] [phone] Notes/Report: Bilirubin Total 0.6 0.0-1.0 mg/dL Bilirubin Direct 0.3 0.0-0.5 mg/dL Aspartate Amino Transferase 21 5-37 U/L Alanine Aminotransferase 21 0-40 U/L Total Protein 7.1 6.5-8.0 g/dL Albumin Level 4.5 3.5-5.0 g/dL Alkaline Phosphatase 71 39-117 U/L Glucose Fasting Reviewed date:07/22/2024 05:03:32 PM Interpretation: Performing Lab:[facility], [address] [place] [phone] Notes/Report: Glucose Fasting 112 60-99 mg/dL A fasting glucose from 100-125 mg/dl is considered impaired (pre-diabetes). Lipid Panel with Reflex Reviewed date:07/22/2024 05:12:54 PM Interpretation: Performing Lab:[facility], [address] [place] [phone] Notes/Report: Triglycerides 105 <150 mg/dL Desirable Triglyceride: [...] A1c Reviewed date:07/22/2024 05:03:43 PM Interpretation: Performing Lab:[facility], [address] [place] [phone] Notes/Report: Hemoglobin A1c % 6.8 <6.0 % [...] average glucose, using the formula of the A7Q-Xreoyoq Average Glucose study (ADAG), Diabetes Care, Vol.31,#8, [...] Location Date Provider Diagnosis Yadiel Bustillos MD [address] [place] [phone] 07/20/2024 Yadiel Bustillos Type 2 diabetes amy [...] Details Provider Name:Yadiel singh, 01/17/2025 07:00:00 AM, [address] [place] [address], [address], [phone], Provider Name:Yadiel singh, 01/25/2025 08:30:00 AM, [address] [place] [address], [address], [phone], Progress Notes * Russell BERUMEN FDOB: [birth year] (73 yo M)Acc No.[id number]:07/20/2024 Progress Note Patient:?Russell Berumen Provider:?Yadiel Bustillos MD :1950???Age:73 Y???Sex:Male Yassine e:07/20/2024 Address:[address], [place] [facility] Subjective: * Chief Complaints: * ???FASTING LIPIDS [...] Celia Krause on Left Deltoid * Procedure Codes:?38075 VENIP UNCT, ROUTINE*18780 FLU VACC PRSV FREE INC [id number] ADMN FLU VAC NO FEE SCHED SAME DAY * * Sign off status: Completed true * Provider:?Yadiel Bustillos MD Date:?1 Generated for Yenni spivey/Gabriella/Pavanitting on:?01/04/2025 08:40 AM EDT
--- OUTSIDE RECORDS SUMMARY | 2025-01-04 08:41 | XMS_ITS ---
Author Organization Yadiel Bustillos MD Address [address] [place] [phone] Care Team Providers Care Grain Elevator Motor Starter Name Role Phone Yadiel Bustillos Primary Care Provider Allergies Allergen (clinical drug ingredient) Drug/Non Drug [...] Date Provider Diagnosis Yadiel Bustillos MD 10 [facility] [address] [place] [phone] 07/27/2024 Yadiel Bustillos Type 2 diabetes amy [...] most likely musculoskeleta l/ ORDER FAXED TO [facility] [place] PAT[place] A[place], pending diagnostic [...] most likely mu sculoskeletal/ ORDER FAXED TO [facility] AND PATIENT IS AWARE, pending diagnostic testing Pure hypercholesterolemia stable, at goa l, will continue current regiment Pending Test Test Name Order Date US ABD 07/27/2024 Next Appt Details Provider Name:Yadiel Rodriguez ier, 01/17/2025 07:00:00 AM, [address], [address], [place], [phone], Provider Name:Yadiel Rodriguez ier, 01/25/2025 08:30:00 AM, [address], [address], [place], [phone], Progress Notes * Russell BERUMEN FDOB: [birth year] (73 yo M)Acc No.[id number]:07/27/2024 Progress Notes Patient:?Russell Berumen Provider:?Yadiel Bustillos MD :1950???Age:73 Y???Sex:Male Yassine e:07/27/2024 Address:[address] [place] [address] [facility] Subjective: * Chief Complaints: * ???6 MO [...] seems most likely musculoskeletal/ ORDER FAXED TO [facility] AND PATIENT IS AWARE, pending diagnostic testing?? 3.?Pure hypercholesterolemia ? Continue Atorvastatin Calcium Tablet, 20 MG, TAKE ONE TABLET BY MOUTH EVERY DAY.?? Notes: stable, at goal, will continue current regiment?? * Procedure Codes:? * * Sign off status: Completed true * Provider:?Yadiel Bustillos MD Date:?1 Generated for Yenni spivey/Gabriella/eTransmitting on:?01/04/2025 08:40 AM EDT History and Physical Notes * HPI [...]
--- OUTSIDE RECORDS SUMMARY | 2025-01-04 08:41 | XMS_ITS ---
Author Organization Yadiel Bustillos MD Address [address] [place] [phone] Care Team Providers Care Media Relations Manager Name Role Phone Yadiel Bustillos Primary Care Provider [phone] REASON FOR VISIT US Encounters Encounter Location Date Provider Diagnosis Yadiel Bustillos MD [facility] [address] [place] [phone] 07/27/2024 Yadiel Bustillos Plan Of Treatment Next Appt Details Provider Name:Yadiel singh, 01/17/2025 07:00:00 AM, [address] [place] [address], [address], [place], [place], [phone], Provider Name:Yadiel Rodriguez samantha, 01/25/2025 08:30:00 AM, [address], [address], [place], [phone], Progress Notes * Russell BERUMEN FDOB: 9 (74 yo M)Acc No.[id number]:07/27/2024 Patient:?Russell Berumen F :1950???Age:73 Y???Sex:Male Address:[address] [place] [address], [place] [id number] * true * Date:? Generated for Yenni spivey/Gabriella/eTrhettsmitting on:?01/04/2025 08:40 AM EDT
== END 2025-01-03 08:24 | disposition home or self-care (01) ==
LOC: HO.HOSX 08:23
PROVIDERS: Visit Provider Orthopaedic Surgery
DX: M25.561 Pain in right knee (principal); M25.562 Pain in left knee; Z96.653 Presence of artificial knee joint, bilateral
CPT/HCPCS: 73562; 99212

== ENCOUNTER 2025-01-03 13:06 | Outpatient (AMB) | payer MEDICARE, SELFPAY ==
[2025-01-03 13:08] VITALS: BMI 33.6
--- NOTE | 2025-01-03 13:08 | A.OFFVIS_ITS ---
Vital Signs 01/03/25 13:08 Height 6 ft 2 in Weight 262 lb BMI 33.6 Intake Visit Reasons: OV-B/L knee follow up Intake Note: Russell is a 74 year old male who presents with complaints of mild intermittent discomfort in both of his knees after undergoing bilateral total knee replacement surgeries. He denies any fevers or chills. He continues to walk for exercise. He does not take any medicines for his discomfort. He denies any locking or giving way. Allergies cimetidine [From Tagamet] Allergy (Intermediate, Verified 01/03/25 13:23) severe rash ibuprofen Allergy (Intermediate, Verified 01/03/25 13:23) blisters Penicillins Allergy (Intermediate, Verified 01/03/25 13:23) rash sulfa drugs Allergy (Intermediate, Uncoded 01/03/25 13:23) difficulty breathing Medication List - Last Reconciled 01/03/25 by Kimo Mcmullen MD atorvastatin 20 mg PO DAILY clindamycin HCl 600 mg (2 x 300 mg) PO ONCE metformin 1,000 mg PO BID [facility] Medical History (Updated 11/16/23 @ 11:51 by Alice Mcgraw MD) Arthritis of carpometacarpal (CMC) joint of left thumb Social History (Updated 08/11/23 @ 11:04 by Arianne Vidales [facility]) Current occupational status: employed and retired 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 Leger continues to do very well after undergoing bilateral total knee replacement surgeries. He will continue to walk for exercise. He does know to take antibiotics before any dental work. He will contact me prior to his annual follow-up appointment should any questions or concerns arise. Feel free to call me at any time should questions regarding his orthopedic management arise. I spent 21 minutes in reviewing the patient's records and imaging studies, seeing the patient and documenting in the medical record. Orders: Orders XR knee RT 3V Today M25.561 - Pain in right knee XR knee LT 3V Today M25.562 - Pain in left knee Coding Level of Care Code Est Pt Level 3 (30392) Complex EM visit Add On G2211 Diagnoses Right knee pain M25.561 Left knee pain M25.562
--- OUTSIDE RECORDS SUMMARY | 2025-01-03 14:17 | XMS_ITS | Clinical Summary ---
Author Organization [facility] Address [address] [id number] Care Team Providers Care Fish Fryer Name Role Phone Yadiel Bustillos MD Primary Care Provider [phone] Allergies Active Allergy Reactions Criticality Noted Date Comments Ibuprofen 06/13/2017 Penicillins 06/13/2017 Sulfa Antibiotics 06/13/2017 Cimetidine 06/13/2017 Medications Medication Sig Dispensed Refills Start Date End Date Status atorvastatin (LIPITOR) tablet 20 mg TAKE ONE TABLET BY MOUTH EVERY DAY 4 05/07/2017 Active lisinopril (PRINIVIL,ZESTRIL) tablet 10 mg TAKE ONE TABLET BY MOUTH EVERY DAY 3 03/10/2017 Active metFORMIN (GLUCOPHAGE) tablet 500 mg Take 500 mg by mouth 2 (two) times a day with meals. 4 03/12/2017 Active oxybutynin (DITROPAN) 5 MG tablet TAKE ONE TABLET BY MOUTH EVERY DAY 4 05/07/2017 Active Multiple Vitamin (MULTI VITAMIN PO) Take by mouth. 0 Ac tive B Complex Vitamins (VITAMIN B COMPLEX PO) Take by mouth. 0 Active clindamycin (CLEOCIN) 300 MG capsule Take 2 capsules 1 hour prior to dental appointment 10 capsule 2 06/21/2022 Active Active Problems Problem Noted Date Diagnosed Date Knee stiffness, left 02/22/2019 Left sided sciatica 08/11/2017 Chronic pain of right knee 06/14/2017 Family History Medical History Relation Name Comments Cancer Father Diabetes Father Relation Name Status Comments Father Social History Tobacco Use Types Packs/Day Years Used Date Smoking Tobacco: Never Assessed Sex and Gender Information Value Date Recorded Sex Assigned at Not on file Gender Identity Not on file Sexual Orientation Not on file Job Start Date Occupation Industry Not on file Not on file Not on file Last Filed Vital Signs Vital Sign Reading Time Taken Comments Blood Pressure - - Pulse - - Temperature - - Respiratory Rate - - Oxygen Saturation - - Inhaled Oxygen Concentration - - Weight 113.4 kg (250 lb) 02/22/2019 9:48 AM EDT Height 188 cm (6' 2 ) 02/22/2019 9:48 AM EDT Body Mass Index 32.1 02/22/2019 9:48 AM EDT Plan of Treatment Health Maintenance Due Date Last Done Comments Hepatitis C Screening 1950 COVID-19 Vaccine (#1) 02[birth year]07[birth year]1950 Depression Screening 1961 BMI Counseling 1967 Preventative Health Evaluation 1967 DTap / Tdap / Td (1 - Tdap) 1968 Colon Cancer Screening (Colonoscopy) 1994 Shingrix-Zoster Vaccine (1 of 2) 1999 Fall Risk Assessment 2014 Pneumococcal Vaccine (1 of 1 - PCV) 2014 Influenza Vaccine (#1) 2024 RSV Adult > 60+ Yrs or Pregn ant (1 - 1-dose 75+ series) 2024 Hepatitis B Vaccines Aged Out No long er eligible based on patient's age to complete this topic RSV Ped < 20 months Aged Out No longe r eligible based on patient's age to complete this topic Care Teams Fish Fryer Relationship Specialty Start Date End Date Yadiel Bustillos MD [address] [place] [address] PCP - General Internal Medicine 05/20/17
--- OUTSIDE RECORDS SUMMARY | 2025-01-03 14:17 | XMS_ITS ---
Author Organization Yadiel Bustillos MD Address [address] [place] [phone] Care Team Providers Care Commercial Fishing Vessel Operator Name Role Phone Yadiel Bustillos Primary Care Provider [phone] Allergies Allergen (clinical drug ingredient) Drug/Non Drug Allergy documented on EMR Reaction Allergy Type Onset Date Status ibuprofen ibuprofen (uncoded) blisters hiccups Allergy Active cimetidine tagmet (uncoded) rash Allergy Ac tive Substance with sulfonamide structure and antibacterial mechanism of action (substance) sulfa (uncoded) rash SOB Allergy Active penicillin (uncoded) rash Allergy Active REASON FOR VISIT 6 MO F/U DM Medications Medication SIG (Take, Route, Frequency, Duration) Notes Start Date End Date Status FreeStyle Lite Test - USE DAILY DIREC THOMAS for 90 Active FreeStyle Lancets - USE DAILY DIRECTE D for 90 Active Betamethasone Dipropionate Aug 0.05 % APPLY TO AFFECTED AREA(S) TWO TIMES A DAY for 30 Active Atorvastatin Calcium 20 MG TAKE ONE TABL ET BY MOUTH EVERY DAY Active Clindamycin HCl 300 MG 2 capsules, one h our before dental procudures Orally once a day Not-Taking metFORMIN HCl 500 MG TAKE TWO TABLETS BY MOUTH TWICE A DAY Active Vital Signs Blood pressure systolic 118 mm Hg 07/27/20 24 Blood pressure diastolic 60 mm Hg 024 Height 72 in 07/27/2024 Weight 264 lbs 07/27/2024 BMI 35.80 kg/m2 07/27/2024 Encounters Encounter Location Date Provider Diagnosis Yadiel Bustillos MD 10 [facility] [address] [place] [phone] 07/27/2024 Yadiel Bustillos Type 2 diabetes amy itus without complication E11.9 ; Flank pain R10.9 and Pure hypercholesterolemia E78.00 Assessments Encounter Date Diagnosis (ICD Code) Assessment Notes Treatment Notes Treatment Clinical Notes Section Notes 07/27/2024 Type 2 diabetes mellitus without complication (ICD-10 - E11.9) is doing better with weight loss and watching carbs, will cntinue curren regiment and will continue to monitor 07/27/2024 Flank pain (ICD-10 - R10.9) seems most likely musculoskeleta l/ ORDER [place] [facility] [facility] [place], pending diagnostic testing 07/27/2024 Pure hypercholesterolemia (ICD-10 - E78.00) stable, at goal, will continue current regiment Plan Of Treatment Medication Medication Name Sig Start Date Stop Date Notes Atorvastatin Calcium 20 MG TAKE ONE TABL ET BY MOUTH EVERY DAY metFORMIN HCl 500 MG TAKE TWO TABLETS BY MOUTH TWICE A DAY Treatment Notes Assessment Notes Type 2 diabetes mellitus without complic ation is doing better with weight loss and watching carbs, will cntinue curren regiment and will continue to monitor Flank pain seems most likely mu sculoskeletal/ ORDER [place] [facility] [place], pending diagnostic testing Pure hypercholesterolemia stable, at goa l, will continue current regiment Pending Test Test Name Order Date US ABD 07/27/2024 Next Appt Details Provider Name:Yadiel Rodriguez ier, 01/17/2025 07:00:00 AM, [address], [address], [place], [phone], Provider Name:Yadiel Rodriguez ier, 01/25/2025 08:30:00 AM, [address], [address], [place], [phone], Progress Notes * Russell BERUMEN FDOB: [birth year] (73 yo M)Acc No.[id number]:07/27/2024 Progress Notes Patient:?Russell Berumen Provider:?Yadiel Bustillos MD :1950???Age:73 Y???Sex:Male Yassine e:07/27/2024 Address:[address] [place] [address] [facility] Subjective: * Chief Complaints: * ???6 MO F/U DM * HPI: ???Symptom(s):? patient is a 73 yo male here for 6 month follow up visit. doing well. has pain in flank on the left when moving around. * ROS:?General/Constitutional:?Denies?Chills.?Denies?Fatigue.?Denies?Fever.?Denies?Headache.?ENT:?Patient denies?decreased sense of smell , any loss of taste , sore throat.?Denies?Sore throat.?Endocrine:?Denies?Difficulty sleeping.?Denies?Dizziness.?Denies?Excessive sweating.?Denies?Excessive thirst.?Denies?Frequent urination.?Respiratory:?Denies?Cough.?Denies?Shortness of breath at rest.?Denies?Shortness of breath with exertion.?Gastrointestinal:?Denies?Diarrhea.?Denies?Nausea.?Musculoskeletal:?Patient denies?muscle aches.?Peripheral Vascular:?Patient denies?red and blue toes.? * Medical History:? * Surgical History:? * Hospitalization/Major Diagno stic Procedure:? * Medications:?TakingFreeStyle Lite Test - Strip USE DAILY DIRECTED FreeStyle Lancets - Miscellaneous USE DAILY DIRECTED Betamethasone Dipropionate Aug 0.05 % Cream APPLY TO AFFECTED AREA(S) TWO TIMES A DAY Atorvastatin Calcium 20 MG Tablet TAKE ONE TABLET BY MOUTH EVERY DAY metFORMIN HCl 500 MG Tablet TAKE TWO TABLETS BY MOUTH TWICE A DAY Taking FreeStyle Lite Test - Strip USE DAILY DIRECTED Taking FreeStyle Lancets - Miscellaneous USE DAILY DIRECTED Taking Betamethasone Dipropionate Aug 0.05 % Cream APPLY TO AFFECTED AREA(S) TWO TIMES A DAY Taking Atorvastatin Calcium 20 MG Tablet TAKE ONE TABLET BY MOUTH EVERY DAY Taking metFORMIN HCl 500 MG Tablet TAKE TWO TABLETS BY MOUTH TWICE A DAY Not- Taking/PRNClindamycin HCl 300 MG Capsule 2 capsules, one hour before dental procudures Orally once a dayMedication List reviewed and reconciled with the patientNot-Taking/PRN Clindamycin HCl 300 MG Capsule 2 capsules, one hour before dental procudures Orally once a dayMedication List reviewed and reconciled with the patient * Allergies:?penicillin: rashs ulfa: rash SOBtagmet: rashibuprofen: blisters hiccupsyes[Allergies Verified] Objective: * Vitals:?Ht: 72, Wt:264, BMI: 35.80, BP:118/60. * ???Past Orders: ???Lab:Lipid Panel with Refl ex (Order Date - 07/20/2024) (Collection Date - 07/20/2024) ? Value Reference Range ?Triglycerides 105 <150 - mg/dL ?Cholesterol 141 <200 - m g/dL ?LDL Cholesterol Calculated 51 <100 - mg/dL ?HDL Cholesterol 69 >40 - mg/dL ???Lab:Hemoglobin A1c (Order Date - 07/20/2024) (Collection Date - 07/20/2024) ? Value Reference Range ?Hemoglobin A1c % 6.8 H <6. 0 - % ?Estimated Average Glucose 148 - mg/dL ???Lab:Betty De Paz (Order Date - 07/20/2024) (Collection Date - 07/20/2024) ? Value Reference Range ?Betty De Paz See Note - ???Lab:Liver Panel (Order Da te - 07/20/2024) (Collection Date - 07/20/2024) ? Value Reference Range ?Bilirubin Total 0.6 0.0- 1.0 - mg/dL ?Bilirubin Direct 0.3 0.0 -0.5 - mg/dL ?Aspartate Amino Transferase 21 5-37 - U/L ?Alanine Aminotransferase 21 0-40 - U/L ?Total Protein 7.1 6.5-8. 0 - g/dL ?Albumin Level 4.5 3.5-5. 0 - g/dL ?Alkaline Phosphatase 71 39-117 - U/L ???Lab:Glucose Fasting (Orde r Date - 07/20/2024) (Collection Date - 07/20/2024) ? Value Reference Range ?Glucose Fasting 112 H 60-9 9 - mg/dL * Examination: ???General Examination: ?GENERAL APPEARANCE:?alert, well hydrated, in no distress.?HEAD:?normocephalic.?HEART:?regular rate and rhythm , no murmurs, rubs, gallops.?LUNGS:?no wheezes, rales, rhonchi , good air movement , clear to auscultation bilaterally.?BACK:?no costovertebral angle tenderness , spine nontender to palpation.? Assessment: * Assessment: 1.?Type 2 diabetes mellitus without complication - E11.9 (Primary)?2.?Flank pain - R10.9?3.?Pure hypercholesterolemia - E78.00? Plan: * Treatment: 2.?Flank pain?Imaging: US ABD Notes: seems most likely musculoskeletal/ ORDER [place] [facility] [place] PAT[place] A[place], pending diagnostic testing?? 3.?Pure hypercholesterolemia ? Continue Atorvastatin Calcium Tablet, 20 MG, TAKE ONE TABLET BY MOUTH EVERY DAY.?? Notes: stable, at goal, will continue current regiment?? * Procedure Codes:? * * Sign off status: Completed true * Provider:?Yadiel Bustillos MD Date:?1 Generated for Yenni spivey/Gabriella/eTransmitting on:?01/03/2025 02:17 PM EDT History and Physical Notes * HPI (History of Present Illness) Category Sub-Category Detail Notes Category Not es Symptom(s) patient is a 73 yo male here for 6 month follow up visit. doing well. has pain in flank on the left when moving around. Examination Category Sub-Category Detail Notes Category Not es General Examination GENERAL APPEARANCE: alert, w ell hydrated, in no distress HEAD: normocephalic HEART: regular rate and rhy thm , no murmurs, rubs, gallops LUNGS: no wheezes, rales, r honchi , good air movement , clear to auscultation bilaterally BACK: no costovertebral an gle tenderness , spine nontender to palpation
--- OUTSIDE RECORDS SUMMARY | 2025-01-03 14:18 | XMS_ITS ---
Author Organization Yadiel Bustillos MD Address [address] [place] [phone] Care Team Providers Care Supervisor Mails Name Role Phone Yadiel Bustillos Primary Care Provider [phone] REASON FOR VISIT US Encounters Encounter Location Date Provider Diagnosis Yadiel Bustillos MD 10 [facility] [address] [place] [phone] 07/27/2024 Yadiel Bustillos Plan Of Treatment Next Appt Details Provider Name:Yadiel singh, 01/17/2025 07:00:00 AM, [address] [place] [address], [address], [place], [place], [phone], Provider Name:Yadiel Rodriguez samantha, 01/25/2025 08:30:00 AM, [address], [address], [place], [phone], Progress Notes * Russell BERUMEN FDOB: [birth year] (74 yo M)Acc No.[id number]:07/27/2024 Patient:?Russell Berumen F :1950???Age:73 Y???Sex:Male Address:[address] [place] [address], [place] [id number] * true * Date:? Generated for Yenni spivey/Gabriella/Jericasmitting on:?01/03/2025 02:17 PM EDT
--- OUTSIDE RECORDS SUMMARY | 2025-01-03 14:18 | XMS_ITS ---
Author Organization Yadiel Bustillos MD Address [address] [place], [place] [phone] Care Team Providers Care Application Chemist Name Role Phone Yadiel Bustillos Primary Care Provider Results Component Value Reference Range Notes Liver Panel Reviewed date:07/22/2024 05:03:18 PM Interpretation: Performing Lab:[facility], [address] [place] [phone] Notes/Report: Bilirubin Total 0.6 0.0-1.0 mg/dL Bilirubin Direct 0.3 0.0-0.5 mg/dL Aspartate Amino Transferase 21 5-37 U/L Alanine Aminotransferase 21 0-40 U/L Total Protein 7.1 6.5-8.0 g/dL Albumin Level 4.5 3.5-5.0 g/dL Alkaline Phosphatase 71 39-117 U/L Glucose Fasting Reviewed date:07/22/2024 05:03:32 PM Interpretation: Performing Lab:[facility], [address] [place] [phone] Notes/Report: Glucose Fasting 112 60-99 mg/dL A fasting glucose from 100-125 mg/dl is considered impaired (pre-diabetes). Lipid Panel with Reflex Reviewed date:07/22/2024 05:12:54 PM Interpretation: Performing Lab:[facility], [address] [place] [phone] Notes/Report: Triglycerides 105 <150 mg/dL Desirable Triglyceride: less than 150 mg/dL Borderline High Triglyceride 150-199 mg/dL High Triglyceride: 200-499 mg/dL Very High Triglyceride: greater than or equal to 5OO mg/dL Cholesterol 141 <200 mg/dL Desirable Cholesterol: less than 200 mg/dL Borderline High Cholesterol: 200-239 mg/dL High Cholesterol: greater than 239 mg/dL LDL Cholesterol Calculated 51 <100 mg/dL Desirable LDL: less than 100 mg/dL Near Optimal/Above Optimal LDL: 110-129 mg/dL Borderline High LDL: 130-159 mg/dL High LDL: 160-189 mg/dL Very High LDL: greater than or equal to 190 mg/dL HDL Cholesterol 69 >40 mg/dL Desirable HDL: greater than 40 mg/dL Note: This HDL assay may give artificially low results in patients with liver disease. Hemoglobin A1c Reviewed date:07/22/2024 05:03:43 PM Interpretation: Performing Lab:[facility], [address] [place] [phone] Notes/Report: Hemoglobin A1c % 6.8 <6.0 % Hemoglobin A1C Reference Range Adults: 4.8 - 6.0 % Non diabetic: < 6.0 % Goal: < 7.0 % Additional Action Suggested: > 8.0 % Note: Hemoglobin A1c results are invalid for patients with abnormal amounts of HbF. Blood transfusions may impact the HbA1c concentration in the patient sample. Estimated Average Glucose 148 eAG = Estimated average glucose which is %A1C expressed as average glucose, using the formula of the W0W-Hyhjlct Average Glucose study (ADAG), Diabetes Care, Vol.31,#8, May. 2007 REASON FOR VISIT FASTING LIPIDS Medications Medication SIG (Take, Route, Frequency, Duration) Notes Start Date End Date Status FreeStyle Lancets - USE DAILY DIRECTE D for 90 Active FreeStyle Lite Test - USE DAILY DIREC THOMAS for 90 Active Betamethasone Dipropionate Aug 0.05 % APPLY TO AFFECTED AREA(S) TWO TIMES A DAY for 30 Active Atorvastatin Calcium 20 MG TAKE ONE TABL ET BY MOUTH EVERY DAY Active Clindamycin HCl 300 MG 2 capsules, one h our before dental procudures Orally once a day Not-Taking metFORMIN HCl 500 MG TAKE TWO TABLETS BY MOUTH TWICE A DAY for 90 Active Immunizations Vaccine Route Administration Date Status Comme nts Influenza High Dose IM Intramuscular 07/20/2024 Administer ed Encounters Encounter Location Date Provider Diagnosis Yadiel Bustillos MD [address] [place] [phone] 07/20/2024 Yadiel Bustillos Type 2 diabetes amy itus without complication E11.9 ; Pure hypercholesterolemia E78.00 and Encounter for immunization Z23 Assessments Encounter Date Diagnosis (ICD Code) Assessment Notes Treatment Notes Treatment Clinical Notes Section Notes 07/20/2024 Type 2 diabetes amy itus without complication (ICD-10 - E11.9) 07/20/2024 Pure hypercholesterolemia (ICD-10 - E78.00) 07/20/2024 Encounter for immunization (ICD-10 - Z23) Plan Of Treatment Next Appt Details Provider Name:Yadiel singh, 01/17/2025 07:00:00 AM, [address] [place] [address], [address], [phone], Provider Name:Yadiel singh, 01/25/2025 08:30:00 AM, [address] [place] [address], [address], [phone], Progress Notes * Russell BERUMEN FDOB: [birth year] (73 yo M)Acc No.[id number]:07/20/2024 Progress Note Patient:?Russell Berumen Provider:?Yadiel Bustillos MD :1950???Age:73 Y???Sex:Male Yassine e:07/20/2024 Address:[address], [place] [facility] Subjective: * Chief Complaints: * ???FASTING LIPIDS * Medical History:? * Surgical History:? * [...] hour before dental procudures Orally once a dayNot-Taking/PRN Clindamycin HCl 300 MG Capsule 2 capsules, one hour before dental procudures Orally once a day Objective: Assessment: * Assessment: 1.?Type 2 diabetes mellitus without complication - E11.9 (Primary)?2.?Pure hypercholesterolemia - E78.00?3.?Encounter for immunization - Z23? Plan: * Treatment: 2.?Pure hypercholesterolemia ?LAB: Liver Panel ?LAB: Glucose Fasting ?LAB: Lipid Panel with Reflex ?LAB: Hemoglobin A1c * Immunizations:? Influenza High Dose : 0.5 mL (Dose No:1) (Route: Intramuscular) given by Celia Krause on Left Deltoid * Procedure Codes:?86117 VENIP UNCT, ROUTINE*53268 FLU VACC PRSV FREE INC [id number] ADMN FLU VAC NO FEE SCHED SAME DAY * * Sign off status: Completed true * Provider:?Yadiel Bustillos MD Date:?1 Generated for Yenni spivey/Gabriella/Pavanitting on:?01/03/2025 02:17 PM EDT
== END 2025-01-03 13:31 | disposition home or self-care (01) ==
LOC: HO.HOS 13:06
PROVIDERS: PCP Internal Medicine; Visit Provider Orthopaedic Surgery
DX: M25.561 Pain in right knee (principal); M25.562 Pain in left knee; Z96.653 Presence of artificial knee joint, bilateral
CPT/HCPCS: 99213; G2211

== ENCOUNTER → 2025-01-03 13:08 | Outpatient (BNV) | payer MEDICARE, SELFPAY | PROVIDERS: Visit Provider Specialist | DX: M25.561 Pain in right knee (principal); M25.562 Pain in left knee | CPT/HCPCS: 73562 ==

== ENCOUNTER 2025-01-17 09:54 | Outpatient (REF) | payer MEDICARE, SELFPAY ==
[2025-01-17 09:58] LABS: MANUAL DIFF FLAG NO
[2025-01-17 10:23] LABS: Basophils Absolute Auto 0.1 X10*3/uL (0.0-0.2); Basophils Percent Auto 1.3 % (0-2); Eosinophils Absolute Auto 0.3 X10*3/uL (0.0-0.4); Eosinophils Percent Auto 4.5 % (0-4); Hematocrit 41.7 % (42.0-52.0); Imm Gran Abs Auto 0.04 X10*3/uL (0.00-0.03); Imm Gran Pct Auto 0.7 % (0.0-0.4); Lymphocytes Absolute Auto 2.2 X10*3/uL (1.2-4.9); Lymphocytes Percent Auto 36.8 % (20-40); Mean Corpuscular HGB Conc 33.6 g/dl (31.0-36.0); Mean Corpuscular Hemoglobin 30.2 pg (27.0-33.0); Mean Corpuscular Volume 90.1 fL (80.0-98.0); Mean Platelet Volume 9.4 fL (9.4-12.4); Monocytes Absolute Auto 0.5 X10*3/uL (0.1-1.2); Monocytes Percent Auto 8.4 % (2-11); Neutrophils Absolute Auto 2.9 x10*3/uL (2.0-8.3); Neutrophils Percent Auto 48.3 % (45-73); Platelet Count 229 X10*3/uL (160-400); Red Blood Count 4.63 X10*6/uL (4.60-5.80); Red Cell Distribution Width 14.6 % (11.0-16.0)
[2025-01-17 10:27] LABS: Estimated Average Glucose 148 mg/dL; Hemoglobin A1C 191.4709 umol/L; Hemoglobin A1c % 6.8 % (<6.0); Total Hemoglobin (HGBA1C) 3748.6461 umol/L
[2025-01-17 10:44] LABS: PSA,Total (Free>4and<10) 0.16 ng/mL (0.00-4.00)
[2025-01-17 10:47] LABS: Alanine Aminotransferase 27 U/L (0-40); Albumin Level 4.2 g/dL (3.5-5.0); Anion Gap 12 (12-20); Aspartate Amino Transferase 26 U/L (5-37); Bilirubin Direct 0.2 mg/dL (0.0-0.5); Bilirubin Total 0.5 mg/dL (0.0-1.0); Blood Urea Nitrogen 19 mg/dL (9-16); Calcium 9.7 mg/dL (8.4-10.2); Carbon Dioxide 28 mmol/L (22-29); Chloride 105 mmol/L (96-108); Cholesterol 148 mg/dL (<200); Estimated Glomerular Filt Rate > 60; Glucose Fasting 138 mg/dL (60-99); HDL Cholesterol 58 mg/dL (>40); LDL Cholesterol Calculated 71 mg/dL (<100); Potassium 4.1 mmol/L (3.3-5.1); Sodium 141 mmol/L (135-145); Total Protein 6.7 g/dL (6.5-8.0); Triglycerides 98 mg/dL (<150)
[2025-01-17 10:50] LABS: Creatinine Urine 137.11 mg/dL; Microalbum/Creatinine Ratio Ur 3.6 ug/mg cr (<30)
[2025-01-17 10:56] LABS: Alkaline Phosphatase 78 U/L (39-117); Appearance Urine Clear; Color Urine Yellow; Glucose Urine UA Negative (Negative); Leukocyte Esterase Urine Negative (Negative); Nitrite Urine Negative (Negative); PH 5.5 (5.0-9.0); Urine Blood Negative (Negative); Urine Ketones Negative (Negative); Urine Protein Negative (Neg-Trace)
[2025-01-17 11:02] LABS: Bacteria Urine None Seen (None Seen); Hyaline Casts Urine 0-2 /LPF (0-2); RBC Urine 0-2 /HPF (0-2); Squamous Epithelial Cell Urine 0-2 /HPF (0-2); WBC Urine 0-5 /HPF (0-5)
--- OUTSIDE RECORDS SUMMARY | 2025-01-17 11:32 | XMS_ITS | Clinical Summary ---
Author Organization [facility] Address [address] [phone] Care Team Providers Care Mechanist Name Role Phone Yadiel Bustillos MD Primary Care Provider [phone] Allergies Active Allergy Reactions Criticality Noted Date [...] age to complete this topic Care Teams Mechanist Relationship Specialty Start Date End Date Yadiel Bustillos MD [address] [place] [address] PCP - General Internal Medicine 05/20/17
--- OUTSIDE RECORDS SUMMARY | 2025-01-17 11:32 | XMS_ITS ---
Author Organization Yadiel Bustillos MD Address [address] [place] [phone] Care Team Providers Care Scientific Publications Editor Name Role Phone Yadiel Bustillos Primary Care Provider Results Component Value Reference Range Notes Complete Blood Count Auto Di ff (Not yet reviewed by provider) Interpretation: Performing Lab:[facility], [address] [place] [phone] Notes/Report: White Blood Count 6.0 4.8-10.8 X10*3/uL Red Blood Count 4.63 4.60-5.80 X10*6/uL Hemoglobin 14.0 14.0-18.0 g/dl Hematocrit 41.7 42.0-52.0 % Mean Corpuscular Volume 90.1 80.0-98.0 fL Mean Corpuscular Hemoglobin 30.2 27.0-33.0 pg Mean Corpuscular HGB Conc 33.6 31.0-36.0 g/dl Red Cell Distribution Width 14.6 11.0-16.0 % Platelet Count 229 160-400 X10*3/uL Mean Platelet Volume 9.4 9.4-12.4 fL Neutrophils Percent Auto 48.3 45-73 % Imm Gran Pct Auto 0.7 0.0-0.4 % Lymphocytes Percent Auto 36.8 20-40 % Monocytes Percent Auto 8.4 2-11 % Eosinophils Percent Auto 4.5 0-4 % Basophils Percent Auto 1.3 0-2 % NRBC Pct Auto 0.0 0.0-0.2 /100WBC Neutrophils Absolute Auto 2.9 2.0-8.3 x10*3/u L Imm Gran Abs Auto 0.04 0.00-0.03 X10*3/uL Lymphocytes Absolute Auto 2.2 1.2-4.9 X10*3/u L Monocytes Absolute Auto 0.5 0.1-1.2 X10*3/uL Eosinophils Absolute Auto 0.3 0.0-0.4 X10*3/u L Basophils Absolute Auto 0.1 0.0-0.2 X10*3/uL NRBC Abs Auto 0.000 0.0-0.012 X10*3/uL PSA,Total (Free>4and<10) (No t yet reviewed by provider) Interpretation: Performing Lab:[facility], [address] [place] [phone] Notes/Report: PSA,Total (Free>4and<10) 0.16 0.00-4.00 ng/mL A Free PSA was not performed: The percentage of Free PSA can be used to enhance the differentiation of prostate cancer from benign prostatic disease in subjects whose PSA levels are between 4.0 and 10.0 ng/mL. For subjects whose PSA levels are below 4.0 or above 10.0 ng/mL, the risk of prostate cancer is determined on the basis of the PSA alone. Therefore the % Free PSA is recommended only for those subjects whose PSA levels are between 4.0 and 10.0 ng/mL. PSA methodology: Camacho Alinity i Chemiluminescent Microparticle Immunoassay (CMIA) Microalbumin, Random (Not ye t reviewed by provider) Interpretation: Performing Lab:[address] [phone] Notes/Report: Creatinine Urine 137.11 Microalbumin Urine 5.0 Microalbum/Creatinine Ratio Ur 3.6 <30 ug/mg cr Albumin/Creatinine Ratio Reference Ranges: Normal: < 30 ug/mg creatinine Microalbuminuria: 30 - 300 ug/mg creatinine Clinical Albuminuria: > 300 ug/mg creatinine Hemoglobin A1c (Not yet revi ewed by provider) Interpretation: Performing Lab:[address] [phone] Notes/Report: Hemoglobin A1c % 6.8 <6.0 % [...] average glucose, using the formula of the O3R-Lravwqi Average Glucose study (ADAG), Diabetes Care, Vol.31,#8, May. 2007 UA ClnCatch+Micro w/rflx Cul t (Not yet reviewed by provider) Interpretation: Performing Lab:[address] [phone] Notes/Report: Urine, Clean Catch Color Urine Yellow Appearance Urine Clear PH 5.5 5.0-9.0 Glucose Urine UA Negative Negative mg/dL Urine Blood Negative Negative Specific [place] - Urine 1.020 1.005-1.025 Urine Protein Negative Neg-Trace mg/dL Urine Ketones Negative Negative mg/dL Nitrite Urine Negative Negative Leukocyte Esterase Urine Negative Negative RBC Urine 0-2 0-2 /HPF WBC Urine 0-5 0-5 /HPF Squamous Epithelial Cell Urine 0-2 0-2 /HPF Bacteria Urine None Seen None Seen Hyaline Casts Urine 0-2 0-2 /LPF REASON FOR VISIT FASTING LIPIDS Encounters Encounter Location Date Provider Diagnosis Yadiel Bustillos MD [address] [place], [place] [phone] 01/17/2025 Yadiel Bustillos Type 2 diabetes amy itus without complication E11.9 and Pure hypercholesterolemia E78.00 Assessments Encounter Date Diagnosis (ICD Code) Assessment Notes Treatment Notes Treatment Clinical Notes Section Notes 01/17/2025 Type 2 diabetes amy itus without complication (ICD-10 - E11.9) 01/17/2025 Pure hypercholesterolemia (ICD-10 - E78.00) Plan Of Treatment Pending Test Test Name Order Date Complete Blood Count Auto Diff Comprehensive [place]. Panel Fast Liver Panel 01/17/2025 Lipid Panel with Reflex 01/17/2025 PSA,Total (Free>4and<10) 01/17/2025 Microalbumin, Random 01/17/2025 Hemoglobin A1c 01/17/2025 UA ClnCatch+Micro w/rflx Cult 01/17/2025 Next Appt Details Provider Name:Yadiel Rodriguez ier, 01/25/2025 08:30:00 AM, [address], [address], [place], [place], [phone], Progress Notes * ATA, Russell FDOB: 9 (74 yo M)Acc No.[id number]:01/17/2025 Progress Note Patient:?Russell BERUMEN Provider:?Yadiel Bustillos MD :1950???Age:74 Y???Sex:Male Yassine e:01/17/2025 Address:[address] [place], [place] [phone] Subjective: * Chief Complaints: * ???1. FASTING LIPIDS. * Medical History:? Objective: * Vitals:? Assessment: * Assessment: 1.?Type 2 diabetes mellitus without complication - E11.9 (Primary)???2.?Pure hypercholesterolemia - E78.00??? Plan: * Treatment: 2.?Pure hypercholesterolemia ?LAB: Complete Blood Count Auto Diff (Collection Date & Time - 01/17/2025 07:00 AM) ?LAB: Comprehensive [place]. Panel Fast ?LAB: Liver Panel ?LAB: Lipid Panel with Reflex ?LAB: PSA,Total (Free>4and<10) (Collection Date & Time - 01/17/2025 07:00 AM) ?LAB: Microalbumin, Random (Collection Date & Time - 01/17/2025 07:00 AM) ?LAB: Hemoglobin A1c (Collection Date & Time - 01/17/2025 07:00 AM) ?LAB: UA ClnCatch+Micro w/rflx Cult (Collection Date & Time - 01/17/2025 07:00 AM) * Procedure Codes:?70906 VENIP UNCT, ROUTINE* * * The named appointment provid er may or may not be the originator of this progress note, and it is not deemed complete until electronically signed by the appointment provider. Sign off status: Pending * Provider:?Yadiel Bustillos MD Date:?0 01/17/2025 Generated for Yenni spivey/Gabriella/Pavanitting on:?01/17/2025 11:32 AM EDT
--- OUTSIDE RECORDS SUMMARY | 2025-01-17 11:32 | XMS_ITS | Patient Health Record ---
Author Organization Yadiel Bustillos MD Address [address] [place] [phone] Care Team Providers Care Glaze Mixer Name Role Phone Yadiel Bustillos Primary Care Provider Allergies Allergen (clinical drug ingredient) Drug/Non Drug Allergy documented on EMR Reaction Allergy Type Onset Date Status ibuprofen ibuprofen (uncoded) blisters hiccups Allergy Active cimetidine tagmet (uncoded) rash Allergy Ac tive Substance with sulfonamide structure and antibacterial mechanism of action (substance) sulfa (uncoded) rash SOB Allergy Active penicillin (uncoded) rash Allergy Active Results Component Value Reference Range Notes Complete Blood Count Auto Di ff (Not yet reviewed by provider) Interpretation: Performing Lab:[facility], [address] [place] [phone] Notes/Report: White Blood Count 6.0 4.8-10.8 X10*3/uL [...] 0.0-0.2 /100WBC Neutrophils Absolute Auto 2.9 2.0-8.3 x10*3/uL Imm Gran Abs Auto 0.04 0.00-0.03 X10*3/uL Lymphocytes Absolute Auto 2.2 1.2-4.9 X10*3/uL Monocytes Absolute Auto 0.5 0.1-1.2 X10*3/uL Eosinophils Absolute Auto 0.3 0.0-0.4 X10*3/uL Basophils Absolute Auto 0.1 0.0-0.2 X10*3/uL NRBC Abs Auto 0.000 0.0-0.012 X10*3/uL PSA,Total (Free>4and<10) (No t yet reviewed by provider) Interpretation: Performing Lab:[facility], [address] [place] [phone] Notes/Report: PSA,Total (Free>4and<10) 0.16 0.00-4.00 ng/mL A [...] ye t reviewed by provider) Interpretation: Performing Lab:[address] [phone] Notes/Report: Creatinine Urine 137.11 Microalbumin Urine 5.0 Microalbum/Creatinine Ratio Ur 3.6 <30 ug/mg cr Albumin/Creatinine Ratio Reference Ranges: Normal: < 30 ug/mg creatinine Microalbuminuria: 30 - 300 ug/mg creatinine Clinical Albuminuria: > 300 ug/mg creatinine Hemoglobin A1c (Not yet revi ewed by provider) Interpretation: Performing Lab:[facility], [address] [place] [phone] Notes/Report: Hemoglobin A1c % 6.8 <6.0 % [...] average glucose, using the formula of the Q3S-Fgwuzqg Average Glucose study (ADAG), Diabetes Care, Vol.31,#8, May. 2007 UA ClnCatch+Micro w/rflx Cul t (Not yet reviewed by provider) Interpretation: Performing Lab:[address] [phone] Notes/Report: Urine, Clean Catch Color Urine Yellow Appearance Urine Clear PH 5.5 5.0-9.0 Glucose Urine UA Negative Negative mg/dL Urine Blood Negative Negative Specific [place] - Urine 1.020 1.005-1.025 Urine Protein Negative Neg-Trace mg/dL Urine Ketones Negative Negative mg/dL Nitrite Urine Negative Negative Leukocyte Esterase Urine Negative Negative RBC Urine 0-2 0-2 /HPF WBC Urine 0-5 0-5 /HPF Squamous Epithelial Cell Urine 0-2 0-2 /HPF Bacteria Urine None Seen None Seen Hyaline Casts Urine 0-2 0-2 /LPF Liver Panel Reviewed date:07/22/2024 05:03:18 PM Interpretation: Performing Lab:[facility], [address] [place] [phone] Notes/Report: Bilirubin Total 0.6 0.0-1.0 mg/dL Bilirubin Direct 0.3 0.0-0.5 mg/dL Aspartate Amino Transferase 21 5-37 U/L Alanine Aminotransferase 21 0-40 U/L Total Protein 7.1 6.5-8.0 g/dL Albumin Level 4.5 3.5-5.0 g/dL Alkaline Phosphatase 71 39-117 U/L Glucose Fasting Reviewed date:07/22/2024 05:03:32 PM Interpretation: Performing Lab:[facility], [address] [place] [phone] Notes/Report: Glucose Fasting 112 60-99 mg/dL A fasting glucose from 100-125 mg/dl is considered impaired (pre-diabetes). Lipid Panel with Reflex Reviewed date:07/22/2024 05:12:54 PM Interpretation: Performing Lab:[facility], [address] [place] [phone] Notes/Report: Triglycerides 105 <150 mg/dL Desirable Triglyceride: [...] A1c Reviewed date:07/22/2024 05:03:43 PM Interpretation: Performing Lab:[facility], [address] [place] [phone] Notes/Report: Hemoglobin A1c % 6.8 <6.0 % [...] average glucose, using the formula of the B5U-Xhxgike Average Glucose study (ADAG), Diabetes Care, Vol.31,#8, 2007 Occult Blood, Stool, Guaiac Reviewed date:02/02/2024 02:13:09 PM Interpretation:Negative Performing Lab: Notes/Report: Negative Occult Blood, Stool, Guaiac Neg Hold Gold Reviewed date:07/22/2024 05:03:07 PM Interpretation: Performing Lab:[facility], [address] [place] [phone] Notes/Report: Hold Gold See Note Specimen held untested for 24 hours; Call to request Chemistry testing. US abdomen complete Reviewed date:08/20/2024 12:42:58 PM Interpretation: Performing Lab: Notes/Report: [address] [address] Ultrasound Report Signed Patient: Russell Leger MR#: [id number] 14 : 1950 Acct:[id number] Age/Sex: 73 / M ADM Date: 08/09/24 Loc: HO.US Attending Dr: Yadiel Bustillos MD Ordering Physician: Yadiel Bustillos MD Date of Service: 08/09/24 Procedure(s): US abdomen complete Accession Number(s): [id number] cc: Yadiel Bustillos MD EXAMINATION: US ABDOMEN COMPLETE CLINICAL INFORMATION: Flank pain. COMPARISON: None available. TECHNIQUE: Real-time imaging of the abdominal viscera. Technically difficult study secondary to bowel gas and body habitus. FINDINGS: PANCREAS: Mostly obscured by bowel gas. Not well visualized ABDOMINAL AORTA: Visualized portion is normal, partly obscured by gas. INFERIOR VENA CAVA: Visualized portions are normal. LIVER: Enlarged measuring 17.1 cm The liver contour is normal. Increased echogenicity of the liver parenchyma, this can be seen in the setting of hepatic steatosis or liver parenchymal disease. No focal hepatic lesion. There is no intrahepatic biliary duct dilatation seen. GALLBLADDER: The gallbladder is physiologically distended. Multiple mobile gallstones are present. No evidence of gallbladder wall thickening or pericholecystic fluid. COMMON BILE DUCT: Normal in caliber measuring 0.7 cm in diameter. RIGHT KIDNEY: Normal. No hydronephrosis. No renal calculi or focal parenchymal lesions. The kidney measures 11.8 cm in maximum dimension. LEFT KIDNEY: Normal. No hydronephrosis. No renal calculi or focal parenchymal lesions. The kidney measures 12.0 cm in maximum dimension. SPLEEN: Normal. The spleen measures 11.6 cm in maximum dimension. FREE FLUID: None. US/US abdomen complete IMPRESSION: 1. Cholelithiasis without ultrasound evidence of acute cholecystitis. 2. Hepatomegaly, increased echogenicity of the liver parenchyma, this can be seen in the setting of hepatic steatosis or liver parenchymal disease. 3. Pancreas not well visualized obscured by bowel gas. Electronically signed by: Charity Vigil MD 08/19/2024 07:02 PM [facility] Dictated By: Charity Vigil MD Signed By: <Electronically signed by Charity Vigil MD in OV> 08/19/24 1902 DD/ 1027 TD/TT: 08/09/24 1055 Peanut Salter: [address] [address] Ultrasound Report Signed Patient: Kenneth Leger MR#: [id number] 14 : 1950 Acct:[id number] Age/Sex: 73 / M ADM Date: 08/09/24 Loc: HO.US Attending Dr: Yadiel Bustillos MD Ordering Physician: Yadiel Bustillos MD Date of Service: 08/09/24 Procedure(s): US abdomen complete Accession Number(s): [id number] cc: Yadiel Bustillos MD EXAMINATION: US ABDOMEN COMPLETE CLINICAL INFORMATION: Flank pain. COMPARISON: None available. TECHNIQUE: Real-time imaging of the abdominal viscera. Technically difficult study secondary to bowel g as and body habitus. FINDINGS: PANCREAS: Mostly obscured by bowel gas. Not well visualized ABDOMINAL AORTA: Visualized portion is normal, partly obscured by gas. INFERIOR VENA CAVA: Visualized portions are normal. LIVER: Enlarged measuring 17.1 cm The liver contour is normal. Increased echogenici ty of the liver parenchyma, this can be seen in the setting of hepatic steatosis or liver parenchymal disease. No focal hepatic lesion. Ther e is no intrahepatic biliary duct dilatation seen. GALLBLADDER: The gallbladder is physiologically distended. Multiple mobile gallstones ar e present. No evidence of gallbladder wall thickening or pericholecystic fluid. COMMON BILE DUCT: Normal in caliber measuring 0.7 cm in diameter. RIGHT KIDNEY: Normal . No hydronephrosis. No renal calculi or focal parenchymal lesions. The kidney measures 11.8 cm in maximum dimension. LEFT KIDNEY: Normal. No hydronephrosis. No renal calculi or focal parenchymal lesions. The kidney measures 12.0 cm in maximum dimension. SPLEEN: Normal. The spleen measures 11.6 cm in maximum dimension. FREE FLUID: None. US/US abdomen complete IMPRESSION: 1. Cholelithiasis without ultrasound evidence of acute cholecystitis. 2. Hepatomegaly, increased echogenicity of the liver parenchyma, this can be seen in the setting of hepatic steatosis or liver parenchymal disease. 3. Pancreas not well visualized obscured by bowel gas. Electronically chantal d by: Charity Vigil MD 08/19/2024 07:02 PM [facility] Dictated By: Charity Vigil MD Signed By: <Electronically signed by Charity Vigil MD in OV> 08/19/24 1902 DD/ 1027 TD/TT: 08/09/24 1055 Peanut Salter: JORGE Reason For Referral No Information Medications Medication SIG (Take, Route, Frequency, Duration) Notes Start Date End Date Status FreeStyle Lite Test - USE DAILY DIREC THOMAS for 90 Active FreeStyle Lancets - USE DAILY DIRECTE D for 90 Active Betamethasone Dipropionate Aug 0.05 % APPLY TO AFFECTED AREA(S) TWO TIMES A DAY for 30 Active metFORMIN HCl 500 MG TAKE TWO TABLETS BY MOUTH TWICE A DAY Active Atorvastatin Calcium 20 MG TAKE ONE TABL ET BY MOUTH EVERY DAY for 30 Active Clindamycin HCl 300 MG 2 capsules, one h our before dental procudures Orally once a day Not-Taking Immunizations Vaccine Route Administration Date Status Comme nts Flu Vaccine IM Intramuscular 07/27/2011 Administered Flu Vaccine IM Intramuscular 08/29/2012 Administered Flu Vaccine Unknown 06/12/2013 Administered [facility] Flu Vaccine Unknown 06/26/2014 Administered [place] [facility] PPSV23 (Pnemovax) IM Intramuscular 05/09/2015 Administered Flu Vaccine IM Intramuscular 06/17/2015 Administered pt re cieved the vaccine at [facility] in [place] Flu Vaccine Unknown 06/17/2015 Administered At work [facility] Flu Vaccine Unknown 06/17/2016 Administered [facility] Fluarix Quadrivalent IM Intramuscular 06/15/2017 Administered given at work. Prevnar 13 IM Intramuscular 06/16/2017 Administered Flu Vaccine IM Intramuscular 06/16/2017 Administered pt wa s given the vaccine at [facility] in [place] TDaP IM Intramuscular 12/17/2017 Administered pt was given the vaccine [facility] [place] [facility]. Shingrix Unknown 02/24/2018 Administered Pharmacy Fluarix Quadrivalent IM Intramuscular 06/19/2018 Administered Shingrix IM Intramuscular 07/27/2018 Administered pt was given the vaccine at [facility] Influenza High Dose IM Intramuscular 07/06/2019 Administered Fluarix Quadrivalent IM Intramuscular 07/11/2020 Administered PPSV23 (Pnemovax) IM Intramuscular 07/18/2020 Administered Covid Vaccine Unknown 01/07/2021 Administered Matthew carrero nd [facility] Influenza High Dose IM Intramuscular 07/10/2021 Administered SARS-COV-2 Pfizer Unknown 09/18/2021 Administered Influenza High Dose IM Intramuscular 07/16/2022 Administered Influenza High Dose IM Intramuscular 06/10/2023 Administered Influenza High Dose IM Intramuscular 07/20/2024 Administered Social History Tobacco Use: Social History Observation Description Date Details (start date - stop date) Former Smoker NA - NA Tobacco Use/Smoking Question Answer Notes Patient is a former smoker How long has it been since y ou last smoked? > 10 years Additional Findings: Tobacco Non-User Fo rmer smoker, currently using no form of tobacco Alcohol Screen Question Answer Notes Did you have a drink contain ing alcohol in the past year? Yes How often did you have a dri nk containing alcohol in the past year? Monthly or less (1 point) How many drinks did you have on a typical day when you were drinking in the past year? 1 or 2 drinks (0 point) How often did you have 6 or more drinks on one occasion in the past year? 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) Active confirmed Problem 42132507 Kidney stone on right side (N20.0) Active confirmed Vital Signs Blood pressure diastolic 60 mm Hg 07/27/2024 Height 72 in 07/27/2024 Blood pressure systolic 118 mm Hg 07/27/2024 Weight 264 lbs 07/27/2024 BMI 35.80 kg/m2 07/27/2024 Encounters Encounter Location Date Provider Diagnosis Yadiel Bustillos MD [address] [place] [id number] 01/17/2025 Yadiel Bustillos Type 2 diabetes amy itus without complication E11.9 and Pure hypercholesterolemia E78.00 Yadiel Bustillos MD [address] [place] [id number] 01/23/2024 Yadiel Bustillos Type 2 diabetes amy itus without complication E11.9 ; Pure hypercholesterolemia E78.00 ; Colon cancer screening Z12.11 and Depression screening Z13.31 Yadiel Bustillos MD [address] [place] [id number] 07/20/2024 Yadiel Bustillos Type 2 diabetes amy itus without complication E11.9 ; Pure hypercholesterolemia E78.00 and Encounter for immunization Z23 Yadiel Bustillos MD [address] [place] [id number] 07/27/2024 Yadiel Bustillos Type 2 diabetes amy itus without complication E11.9 ; Flank pain R10.9 and Pure hypercholesterolemia E78.00 Yadiel Bustillos MD [address] [place] [id number] 01/26/2024 Yadiel Bustillos Colon cancer screeni ng Z12.11 Yadiel Bustillos MD [address] [place] [id number] 07/27/2024 Yadiel Bustillos Assessments Encounter Date Diagnosis (ICD Code) Assessment Notes Treatment Notes Treatment Clinical Notes Section Notes 01/17/2025 Type 2 diabetes mellitus without complication (ICD-10 - E11.9) 01/23/2024 Type 2 diabetes mellitus without complication (ICD-10 - E11.9) good a1c, will continue current regiment 01/23/2024 Pure hypercholesterolemia (ICD-10 - E78.00) doing well on meds, will continue current regiment 07/20/2024 Type 2 diabetes mellitus without complication (ICD-10 - E11.9) 07/20/2024 Pure hypercholesterolemia (ICD-10 - E78.00) 07/27/2024 Type 2 diabetes mellitus without complication (ICD-10 - E11.9) is doing better with weight loss and watching carbs, will cntinue curren regiment and will continue to monitor 07/27/2024 Flank pain (ICD-10 - R10.9) seems most likely musculoskeleta l/ ORDER FAXED TO [facility] AND PATIENT IS AWARE, pending diagnostic testing 01/26/2024 Colon cancer screeni ng (ICD-10 - Z12.11) 01/17/2025 Pure hypercholesterolemia (ICD-10 - E78.00) 01/23/2024 Colon cancer screeni ng (ICD-10 - Z12.11) small amount of stool negative, sent home with cards, to return to office 07/20/2024 Encounter for immunization (ICD-10 - Z23) 07/27/2024 Pure hypercholesterolemia (ICD-10 - E78.00) stable, at goal, will continue current regiment 01/23/2024 Depression screening (ICD-10 - Z13.31) negative screen Plan Of Treatment Pending Test Test Name Order Date Electrocardiogram (EKG) 12/28/2018 Electrocardiogram (EKG) 08/03/2011 US ABD 07/27/2024 Complete Blood Count Auto Diff Comprehensive [place]. Panel Fast Liver Panel 01/17/2025 Lipid Panel with Reflex 01/17/2025 PSA,Total (Free>4and<10) 01/17/2025 Microalbumin, Random 01/17/2025 US renal BI 02/04/2023 Hemoglobin A1c 01/17/2025 UA ClnCatch+Micro w/rflx Cult 01/17/2025 Next Appt Details Provider Name:Yadielclaude Rodriguez ier, 01/25/2025 08:30:00 AM, [address], [address], [place], [place], [phone], Insurance Providers Payer Name Payer Address Payer Phone Subscriber Number Group Number Insured Name Patient Relationship to Insured Coverage Start Date Coverage End Date MEDICARE [employer] [address] [place] [address] [id number] Russell Leger Self - patient is the insured [employer] [place] [address] [place] [phone] [id number] Russell Leger Self - patient is the insured Medical (General) History Medical History History ICD Code colonoscopy 2008 had adenoma s in past . colonoscopy - 08/08/[address] Cohn - repeat 5 yrs. has taken both keflex and augmentin with out difficulty. 11/28/2019 Pt had TURP done with Dr Hope sahni Colonoscopy 02/26/21 with Suki, f/u 5yrs is able to take keflex Surgical History Surgery Date(Month/Year) Rt Total Knee Replacement 06/2016
[2025-01-17 12:59] LABS: Reflex LDLD? No
== END 2025-01-17 09:55 | disposition home or self-care (01) ==
LOC: HO.LNP 09:54
PROVIDERS: Visit Provider Internal Medicine
DX: E11.9 Type 2 diabetes mellitus without complications (principal); E78.00 Pure hypercholesterolemia, unspecified; Z12.5 Encounter for screening for malignant neoplasm of prostate
CPT/HCPCS: 80053; 80061; 80076; 81001; 82043; 82248; 82570; 83036; 84153; 85025

== ENCOUNTER 2025-07-12 12:52 | Outpatient (REF) | payer MEDICARE, SELFPAY ==
[2025-07-12 13:30] LABS: Alanine Aminotransferase 24 U/L (0-40); Albumin Level 4.7 g/dL (3.5-5.0); Alkaline Phosphatase 76 U/L (39-117); Aspartate Amino Transferase 25 U/L (5-37); Cholesterol 147 mg/dL (<200); HDL Cholesterol 62 mg/dL (>40); Total Protein 6.8 g/dL (6.5-8.0); Triglycerides 71 mg/dL (<150)
[2025-07-12 15:17] LABS: Reflex LDLD? No
== END 2025-07-12 12:53 | disposition home or self-care (01) ==
LOC: HO.LNP 12:52
PROVIDERS: Visit Provider Internal Medicine
DX: E11.9 Type 2 diabetes mellitus without complications (principal); E78.00 Pure hypercholesterolemia, unspecified
CPT/HCPCS: 80061; 80076; 82947; 83036